=== PATIENT | male | born 1970 | race Caucasian/White ===

== ENCOUNTER 2016-11-26 19:22 | Emergency (ER) | payer MEDICARE, MEDICAID ==
[2016-11-26] MEDS ORDERED: Ketorolac 30 MG/ML SDV IVPUSH ONE (19:49)
[2016-11-26] MEDS ORDERED: Sodium Chloride 0.9% 1,000 ML IV ONE (19:49)
[2016-11-26] MEDS ORDERED: Ondansetron 4 MG/2 ML SDV IVPUSH ONE (19:49)
--- NOTE | 2016-11-26 19:50 | EDM.PDOC ---
ED HPI GENERAL MEDICAL PROBLEM - General Chief Complaint: Abdominal Pain Stated Complaint: PT HAS STOMACH PAINS Time Seen by Provider: 11/26/16 19:49 Source of Information: Reports: Patient - History of Present Illness INITIAL COMMENTS - FREE TEXT/NARRATIVE: HISTORY AND PHYSICAL: History of present illness: [Patient presents with diffuse abdominal pain right upper and lower quadrant both have a focus of pain he rates 5 out of 10 no fever nausea vomiting chills sweats no chest pain shortness breath headache dizziness palpitation no bowel or urine symptoms ] Review of systems: As per history of present illness and below otherwise all systems reviewed and negative. Past medical history: As per history of present illness and as reviewed below otherwise noncontributory. Surgical history: As per history of present illness and as reviewed below otherwise noncontributory. Social history: No reported history of drug or alcohol abuse. Family history: As per history of present illness and as reviewed below otherwise noncontributory. Physical exam: HEENT: Atraumatic, normocephalic, pupils reactive, negative for conjunctival pallor or scleral icterus, mucous membranes moist, throat clear, neck supple, nontender, trachea midline. Lungs: Clear to auscultation, breath sounds equal bilaterally, chest nontender. Heart: S1S2, regular, negative for clicks, rubs, or JVD. Abdomen: Soft, nondistended diffusely tender with focus in right upper quadrant and right lower quadrant with mild guarding no rebound. Negative for masses or hepatosplenomegaly. Negative for costovertebral tenderness. Pelvis: Stable nontender. Genitourinary: Deferred. Rectal: Deferred. Extremities: Atraumatic, negative for cords or calf pain. Neurovascular unremarkable. Neuro: Awake, alert, oriented. Cranial nerves II through XII unremarkable. Cerebellum unremarkable. Motor and sensory unremarkable throughout. Exam nonfocal. Diagnostics: [CBC CMP UA amylase lipase troponin CT abdomen pelvis with contrast ] Therapeutics: [1 L normal saline bolus Zofran 8 mg IV Toradol 30 mg IV ] Discussed with general surgery cotton picker operator Dr. 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 Abdominal Pain Score (Numeric/FACES): 8 - Related Data Allergies Allergy/AdvReac Type Severity Reaction Status Date / Time succinylcholine Allergy Anaphylactic Verified 11/26/16 19:43 Shock Home Meds: Home Meds busPIRone [Buspar] 15 tab PO BID 02/22/15 [History] Divalproex Sodium [Depakote] 1,000 mg PO DAILY 11/26/16 [History] Divalproex Sodium [Depakote] 500 mg PO DAILY 11/26/16 [History] Past Medical History Cardiovascular History: Reports: Hypertension Respiratory History: Reports: None Psychiatric History: Reports: Anxiety Hematologic History: Reports: None - Infectious Disease History Infectious Disease History: Reports: Chicken Pox - Past Surgical History HEENT Surgical History: Reports: Eye Surgery, Myringotomy w Tube(s), Tonsillectomy GI Surgical History: Reports: Hernia Repair/Other Social & Family History - Family History Family Medical History: Noncontributory - Tobacco Use Smoking Status *Q: Current Every Day Smoker Years of Tobacco use: 5 Packs/Tins Daily: 0.5 ED ROS GENERAL - Review of Systems Review Of Systems: ROS reveals no pertinent complaints other than HPI. ED EXAM, GENERAL - Physical Exam Exam: See Below Course - Vital Signs Last Recorded V/S: Last Vital Signs Temp 35.9 C 11/26/16 19:39 Pulse 122 H 11/26/16 19:39 Resp 19 11/26/16 19:39 BP 137/107 H 11/26/16 19:39 Pulse Ox 97 11/26/16 19:39 - Orders/Labs/Meds Orders: Active Orders 24 hr Category Date Time Status Abdomen Pelvis w Cont [CT] Stat Exams 11/26/16 20:03 Taken Labs: Laboratory Tests 11/26/16 11/26/16 11/26/16 Range/Units 20:06 20:06 20:20 WBC 17.23 H (4.0-11.0) K/uL RBC 4.86 (4.50-5.90) M/uL Hgb 14.8 (13.0-17.0) g/dL Hct 43.6 (38.0-50.0) % MCV 89.7 (80.0-98.0) fL MCH 30.5 (27.0-32.0) pg MCHC 33.9 (31.0-37.0) g/dL RDW Std Deviation 47.6 (28.0-62.0) fl RDW Coeff of Bernarda 15 (11.0-15.0) % Plt Count 418 H (150-400) K/uL MPV 9.90 (7.40-12.00) fL Add Manual Diff YES Neutrophils % (Manual) 78 (48.0-80.0) % Band Neutrophils % 3 % Lymphocytes % (Manual) 8 L (16.0-40.0) % Monocytes % (Manual) 9 (0.0-15.0) % Metamyelocytes % 2 % Nucleated RBC % 0.0 /100WBC Absolute Seg Neuts 13.4 H (1.4-5.7) Band Neutrophils # 0.5 Lymphocytes # (Manual) 1.4 (0.6-2.4) Monocytes # (Manual) 1.6 H (0.0-0.8) Absolute Metamyelocyte 0.3 Nucleated RBCs # 0 K/uL Sodium 130 L (136-146) mmol/L Potassium 4.3 (3.5-5.1) mmol/L Chloride 95 L (98-110) mmol/L Carbon Dioxide 21 (21-31) mmol/L BUN 20 (6.0-23.0) mg/dL Creatinine 1.0 (0.6-1.5) mg/dL Est Cr Clr Drug Dosing 69.01 mL/min Estimated GFR (MDRD) > 60.0 ml/min Glucose 110 (60-110) mg/dL Calcium 14.6 H (8.8-10.8) mg/dL Total Bilirubin 1.5 (0.1-1.5) mg/dL AST 71 H (5-40) IU/L ALT 71 H (8-54) IU/L Alkaline Phosphatase 697 H (40-150) Troponin I < 0.10 (0.0-0.29) NG/ML Total Protein 7.8 (6.0-8.0) g/dL Albumin 3.5 (3.5-5.0) g/dL Globulin 4.3 H (2.0-3.5) g/dL Albumin/Globulin Ratio 0.8 L (1.3-2.8) Amylase 15 (10-90) U/L Lipase 16 (7-80) U/L Urine Color YELLOW Urine Appearance CLEAR Urine pH 5.0 (5.0-8.0) Ur Specific [place] 1.020 (1.001-1.035) Urine Protein NEGATIVE (NEGATIVE) mg/dL Urine Glucose (UA) NEGATIVE (NEGATIVE) mg/dL Urine Ketones NEGATIVE (NEGATIVE) mg/dL Urine Occult Blood TRACE-INTACT (NEGATIVE) Urine Nitrite NEGATIVE (NEGATIVE) Urine Bilirubin NEGATIVE (NEGATIVE) Urine Urobilinogen 0.2 (<2.0) EU/dL Ur Leukocyte Esterase NEGATIVE (NEGATIVE) Urine RBC 0-1 (0-2/HPF) Urine WBC 0-1 (0-5/HPF) Ur Epithelial Cells RARE (NONE-FEW) Urine Bacteria FEW (NEGATIVE) Hyaline Casts 3-5 (0-2/LPF) Meds: Medications Discontinued Medications Generic Name Dose Route Start Last Admin Trade Name Freq PRN Reason Stop Dose Admin Sodium Chloride 1,000 mls @ 999 mls/hr 11/26/16 19:49 11/26/16 20:15 Normal Saline IV 11/26/16 20:49 999 mls/hr STAT ONE Administration Ketorolac Tromethamine 30 mg 11/26/16 19:49 11/26/16 20:15 Toradol IVPUSH 11/26/16 19:50 30 mg ONETIME ONE Administration Ondansetron HCl 8 mg 11/26/16 19:49 11/26/16 20:17 Zofran IVPUSH 11/26/16 19:50 8 mg ONETIME ONE Administration Departure - Departure Time of Disposition: 22:10 Disposition: Home, Self-Care 01 Condition: Poor Clinical Impression: Abdominal pain, Cecum mass - Discharge Information Referrals: PCP,None [Primary Care Provider] - Forms: ED Department Discharge Additional Instructions: Follow-up with general surgery, ER referral will be provided for Tuesday or Tuesday with Dr. hossein fabian Medication as prescribed Return if symptoms persist or worsen [facility] - General Surgery Professional [address], [address] [place] [address] The following information is given to patients seen in the emergency department who are being discharged to home. This information is to outline your options for follow-up care. We provide all patients seen in our emergency department with a follow-up referral. The need for follow-up, as well as the timing and circumstances, are variable depending upon the specifics of your emergency department visit. If you don't have a primary care physician on staff, we will provide you with a referral. We always advise you to contact your personal physician following an emergency department visit to inform them of the circumstance of the visit and for follow-up with them and/or the need for any referrals to a consulting specialist. The emergency department will also refer you to a specialist when appropriate. This referral assures that you have the opportunity for follow-up care with a specialist. All of these measure are taken in an effort to provide you with optimal care, which includes your follow-up. Under all circumstances we always encourage you to contact your private physician who remains a resource for coordinating your care. When calling for follow-up care, please make the office aware that this follow-up is from your recent emergency room visit. If for any reason you are refused follow-up, please contact the [facility] emergency department at and asked to speak to the emergency department charge nurse. - My Orders Last 24 Hours: My Active Orders 11/26/16 20:03 Abdomen Pelvis w Cont [CT] Stat - Assessment/Plan Last 24 Hours: My Active Orders 11/26/16 20:03 Abdomen Pelvis w Cont [CT] Stat
[2016-11-26 20:39] LABS: CHLORIDE,CL 95 mmol/L (98-110); SODIUM,NA 130 mmol/L (136-146)
[2016-11-26] MEDS ORDERED: Iopamidol 755 MG/ML 500 ML Multipack Bottle IVPUSH STA (22:41)
[2016-11-26 22:47] VITALS: BP 129/85
--- NOTE | 2016-11-28 18:36 | CT ---
EXAM DATE: 11/26/16 PATIENT'S AGE: 46 Patient: ROBINSON GARCIA Facility: [place], [place] Site . Site : 1970 Study: CT Abdomen/Pelvis [id number] 9:25:21 PM Ordering Physician: Michael Dangelo Final Report: INDICATION: Right-sided abdominal pain with nausea, vomiting, and diarrhea for 2 weeks. TECHNIQUE: CT abdomen and pelvis acquired with i.v. 100 mL Isovue 370. Coronal and sagittal reformats were obtained. COMPARISON: None FINDINGS: Student Services Director CT images: Nonobstructive bowel gas pattern. Lower chest: Imaged lung bases are clear. No free air. Imaged inferior heart normal in size. No pericardial or pleural effusion. Liver: Numerous hypodense liver lesions throughout the liver, compatible with metastatic disease. Spleen: Unremarkable. Pancreas: Unremarkable. Gallbladder and bile ducts: Incomplete distention of the gallbladder. No acute inflammatory changes in the gallbladder fossa. Bile ducts are normal in caliber. Kidneys: Unremarkable. No kidney or ureteral stones and no hydronephrosis seen. Tiny cortical cyst at superior margin of right kidney on series 301, image 87. Adrenal glands: Unremarkable. GI tract: Abnormal appearance to the cecum, suspicious for likely mass and etiology of numerous liver lesions, visualized on the coronal reformatted series 303, image 41. Exact dimensions likely cecal mass difficult to delineate. Scattered regional mesenteric lymph nodes medial to the cecum, largest measuring 1 centimeter on image 115. Vascular: Unremarkable. Lymph nodes: Multiple mildly enlarged mesenteric lymph nodes in the right lower abdominal quadrant, compatible with metastatic lymph nodes with likely underlying cecal mass. Miscellaneous: Unremarkable. No pneumoperitoneum is seen. No significant ascites is noted. Pelvic Organs: Unremarkable. Bones: Unremarkable for age. IMPRESSION: 1. Findings suspicious for cecal mass with metastatic right lower quadrant mesenteric lymph nodes and numerous hypodense liver lesions. Consider GI consultation for direct visualization and possible tissue sampling. Report called to Dr. Rodriguez on 11/26/2016 at 9:58pm DIRECTOR SUPPLY. Dictated by Juan Marie MD @ 11/26/2016 9:59:10 PM Dictated by: Juan Marie MD @ 11/26/2016 21:59:18 (Electronic Signature) Report Signed by Proxy. [facility]
== END 2016-11-26 22:25 | disposition home or self-care (01) ==
LOC: MW.ED 19:22
DX: K63.89 Other specified diseases of intestine (principal); C78.7 Secondary malignant neoplasm of liver and intrahepatic bile duct; I10 Essential (primary) hypertension; F17.210 Nicotine dependence, cigarettes, uncomplicated; Z79.899 Other long term (current) drug therapy; Z88.8 Allergy status to other drugs, medicaments and biological substances
CPT/HCPCS: 36415; 74177; 80053; 81001; 82150; 83690; 84484; 85025; 96361; 96374; 96375; 99284; J1885; J2405; J7040; Q9967; 99283

== ENCOUNTER 2017-03-05 10:48 | Inpatient (IN) | payer MEDICARE, MEDICAID ==
[2017-03-05] MEDS ORDERED: Sodium Chloride 0.9% 2.5 ML Syringe FLUSH PRN (10:54)
[2017-03-05] MEDS ORDERED: Sodium Chloride 0.9% 1,000 ML IV ONE (10:54)
[2017-03-05] MEDS ORDERED: Sodium Chloride 0.9% 10 ML Syringe FLUSH PRN (10:54)
--- NOTE | 2017-03-05 11:04 | EDM.PDOC ---
ED HPI GENERAL MEDICAL PROBLEM - General Chief Complaint: General Stated Complaint: AMB Time Seen by Provider: 03/05/17 10:52 - History of Present Illness INITIAL COMMENTS - FREE TEXT/NARRATIVE: HISTORY AND PHYSICAL: History of present illness: Patient 46-year-old male with history of advanced metastatic cancer of the colon with liver involvement who is currently undergoing chemotherapy who presents with concern of generalized weakness he's had poor oral intake and no reported fever vomiting or diarrhea Review of systems: As per history of present illness and below otherwise all systems reviewed and negative. Past medical history: As per history of present illness and as reviewed below otherwise noncontributory. Surgical history: As per history of present illness and as reviewed below otherwise noncontributory. Social history: No reported history of drug or alcohol abuse. Family history: As per history of present illness and as reviewed below otherwise noncontributory. Physical exam: HEENT: Atraumatic, normocephalic, pupils reactive, negative conjunctival pallor and scleral icterus noted, mucous membranes moist, throat clear, neck supple, nontender, trachea midline. Lungs: Clear to auscultation, breath sounds equal bilaterally, chest nontender. Heart: S1S2, regular, negative for clicks, rubs, or JVD. Abdomen: Soft, nondistended, nontender. Negative for masses or hepatosplenomegaly. Negative for costovertebral tenderness. Pelvis: Stable nontender. Genitourinary: Deferred. Rectal: Deferred. Extremities: Atraumatic, negative for cords or calf pain. Neurovascular unremarkable. Neuro: Awake, somnolent follows commands moves all extremities generally slow mentation Diagnostics: CBC CMP ABG PT/INR UA urine C&S blood culture 2 lactic acid ammonia EKG troponin chest x-ray Therapeutics: IV O2 monitor saline 1 L bolus Impression: #1 metastatic colon cancer with liver involvement #2 generalized weakness Definitive disposition and diagnosis as appropriate pending reevaluation and review of above. - Related Data Allergies Allergy/AdvReac Type Severity Reaction Status Date / Time succinylcholine Allergy Anaphylactic Verified 03/05/17 10:54 Shock Home Meds: Home Meds busPIRone [Buspar] 15 tab PO BID 02/22/15 [History] Divalproex Sodium [Depakote] 1,000 mg PO DAILY 11/26/16 [History] Divalproex Sodium [Depakote] 500 mg PO DAILY 11/26/16 [History] oxyCODONE 5 mg PO 03/05/17 [History] Past Medical History HEENT History: Reports: None Cardiovascular History: Reports: Hypertension Respiratory History: Reports: None Psychiatric History: Reports: Anxiety Hematologic History: Reports: None - Infectious Disease History Infectious Disease History: Reports: Chicken Pox - Past Surgical History HEENT Surgical History: Reports: Eye Surgery, Myringotomy w Tube(s), Tonsillectomy GI Surgical History: Reports: Hernia Repair/Other Social & Family History - Family History Family Medical History: Noncontributory - Tobacco Use Smoking Status *Q: Current Every Day Smoker Years of Tobacco use: 5 Packs/Tins Daily: 0.5 Second Hand Smoke Exposure: No - Caffeine Use Caffeine Use: Reports: None - Recreational Drug Use Recreational Drug Use: Yes Recreational Drug Type: Reports: Marijuana/Hashish Recreational Drug Last Use: "a month and a half ago" ED ROS GENERAL - Review of Systems Review Of Systems: ROS reveals no pertinent complaints other than HPI. ED EXAM, GENERAL - Physical Exam Exam: See Below (Dictation) Course - Vital Signs Last Recorded V/S: Last Vital Signs Temp 36.4 C 03/05/17 10:55 Pulse 93 03/05/17 11:43 Resp 20 03/05/17 11:43 BP 138/100 H 03/05/17 11:43 Pulse Ox 97 03/05/17 11:43 - Orders/Labs/Meds Orders: Active Orders 24 hr Category Date Time Status Cardiac Monitoring [RC] . DIRECTED Care 03/05/17 10:53 Active EKG Documentation Completion [RC] STAT Care 03/05/17 10:53 Active Oxygen Therapy, ED [RC] ASDIRECTED Care 03/05/17 10:53 Active Pulse Oximetry [RC] ASDIRECTED Care 03/05/17 10:53 Active Chest 1V Frontal [CR] Stat Exams 03/05/17 10:54 Taken CULTURE BLOOD [BC] Stat Lab 03/05/17 11:13 Received CULTURE BLOOD [BC] Stat Lab 03/05/17 11:26 Received CULTURE URINE [RM] Stat Lab 03/05/17 10:54 Uncollected INR,PT,PROTHROMBIN TIME [COAG] Stat Lab 03/05/17 11:13 Received UA W/MICROSCOPIC [URIN] Stat Lab 03/05/17 10:54 Uncollected Sodium Chloride 0.9% [Saline Flush] Med 03/05/17 10:54 Active 10 ml FLUSH ASDIRECTED PRN Sodium Chloride 0.9% [Saline Flush] Med 03/05/17 10:54 Active 2.5 ml FLUSH ASDIRECTED PRN Blood Culture x2 Reflex Set [OM.PC] Stat Ot 03/05/17 10:54 Ordered Saline Lock Insert [OM.PC] Stat Ot 03/05/17 10:53 Ordered Medication Orders Sodium Chloride (Saline Flush) 10 ml FLUSH ASDIRECTED PRN PRN Reason: Keep Vein Open Sodium Chloride (Saline Flush) 2.5 ml FLUSH ASDIRECTED PRN PRN Reason: Keep Vein Open Labs: Laboratory Tests 03/05/17 03/05/17 03/05/17 Range/Units 11:13 11:13 11:13 WBC 9.66 (4.0-11.0) K/uL RBC 4.70 (4.50-5.90) M/uL Hgb 14.5 (13.0-17.0) g/dL Hct 42.2 (38.0-50.0) % MCV 89.8 (80.0-98.0) fL MCH 30.9 (27.0-32.0) pg MCHC 34.4 (31.0-37.0) g/dL RDW Std Deviation 64.4 H (28.0-62.0) fl RDW Coeff of Bernarda 20 H (11.0-15.0) % Plt Count 144 L (150-400) K/uL MPV 9.40 (7.40-12.00) fL Neut % (Auto) 91.2 H (48.0-80.0) % Lymph % (Auto) 7.2 L (16.0-40.0) % [place] % (Auto) 1.4 (0.0-15.0) % Eos % (Auto) 0.0 (0.0-7.0) % Baso % (Auto) 0.2 (0.0-1.5) % Neut # (Auto) 8.8 H (1.4-5.7) K/uL Lymph # (Auto) 0.7 (0.6-2.4) K/uL [place] # (Auto) 0.1 (0.0-0.8) K/uL Eos # (Auto) 0.0 (0.0-0.7) K/uL Baso # (Auto) 0.0 (0.0-0.1) K/uL Nucleated RBC % 0.4 /100WBC Nucleated RBCs # 0 K/uL ABG pH (7.35-7.45) ABG pCO2 (35-45) mmHG ABG pO2 (75-100) mmHG ABG HCO3 (22-26) mEq/L ABG Total CO2 ABG Base Excess (-2.0-2.0) Sodium 131 L (136-146) mmol/L Potassium 3.9 (3.5-5.1) mmol/L Chloride 91 L (98-110) mmol/L Carbon Dioxide 18 L (21-31) mmol/L BUN 8 (6.0-23.0) mg/dL Creatinine 0.5 L (0.6-1.5) mg/dL Est Cr Clr Drug Dosing 143.64 mL/min Estimated GFR (MDRD) > 60.0 ml/min Glucose 70 (60-110) mg/dL Calcium 8.8 (8.8-10.8) mg/dL Total Bilirubin 9.5 H (0.1-1.5) mg/dL AST 534 H (5-40) IU/L ALT 98 H (8-54) IU/L Alkaline Phosphatase 647 H (40-150) Ammonia 151 H (14-68) UG/DL Troponin I < 0.10 (0.0-0.29) NG/ML Total Protein 6.1 (6.0-8.0) g/dL Albumin 2.6 L (3.5-5.0) g/dL Globulin 3.5 (2.0-3.5) g/dL Albumin/Globulin Ratio 0.7 L (1.3-2.8) Amylase 23 (10-90) U/L 03/05/17 Range/Units 11:15 WBC (4.0-11.0) K/uL RBC (4.50-5.90) M/uL Hgb (13.0-17.0) g/dL Hct (38.0-50.0) % MCV (80.0-98.0) fL MCH (27.0-32.0) pg MCHC (31.0-37.0) g/dL RDW Std Deviation (28.0-62.0) fl RDW Coeff of Bernarda (11.0-15.0) % Plt Count (150-400) K/uL MPV (7.40-12.00) fL Neut % (Auto) (48.0-80.0) % Lymph % (Auto) (16.0-40.0) % [place] % (Auto) (0.0-15.0) % Eos % (Auto) (0.0-7.0) % Baso % (Auto) (0.0-1.5) % Neut # (Auto) (1.4-5.7) K/uL Lymph # (Auto) (0.6-2.4) K/uL [place] # (Auto) (0.0-0.8) K/uL Eos # (Auto) (0.0-0.7) K/uL Baso # (Auto) (0.0-0.1) K/uL Nucleated RBC % /100WBC Nucleated RBCs # K/uL ABG pH 7.510 H (7.35-7.45) ABG pCO2 26 L (35-45) mmHG ABG pO2 88 (75-100) mmHG ABG HCO3 21 L (22-26) mEq/L ABG Total CO2 18.3 ABG Base Excess -0.6 (-2.0-2.0) Sodium (136-146) mmol/L Potassium (3.5-5.1) mmol/L Chloride (98-110) mmol/L Carbon Dioxide (21-31) mmol/L BUN (6.0-23.0) mg/dL Creatinine (0.6-1.5) mg/dL Est Cr Clr Drug Dosing mL/min Estimated GFR (MDRD) ml/min Glucose (60-110) mg/dL Calcium (8.8-10.8) mg/dL Total Bilirubin (0.1-1.5) mg/dL AST (5-40) IU/L ALT (8-54) IU/L Alkaline Phosphatase (40-150) Ammonia (14-68) UG/DL Troponin I (0.0-0.29) NG/ML Total Protein (6.0-8.0) g/dL Albumin (3.5-5.0) g/dL Globulin (2.0-3.5) g/dL Albumin/Globulin Ratio (1.3-2.8) Amylase (10-90) U/L Meds: Medications Generic Name Dose Route Start Last Admin Trade Name Freq PRN Reason Stop Dose Admin Sodium Chloride 10 ml 03/05/17 10:54 Saline Flush FLUSH ASDIRECTED PRN Keep Vein Open Sodium Chloride 2.5 ml 03/05/17 10:54 Saline Flush FLUSH ASDIRECTED PRN Keep Vein Open Discontinued Medications Generic Name Dose Route Start Last Admin Trade Name Freq PRN Reason Stop Dose Admin Sodium Chloride 1,000 mls @ 999 mls/hr 03/05/17 10:54 03/05/17 11:27 Normal Saline IV 03/05/17 11:54 999 mls/hr STAT ONE Administration Departure - Departure Time of Disposition: 11:04 Disposition: Admitted As Inpatient 67 Condition: Fair Clinical Impression: Generalized weakness, Metastatic cancer - Discharge Information Forms: ED Department Discharge - My Orders Last 24 Hours: My Active Orders 03/05/17 10:53 Cardiac Monitoring [RC] . DIRECTED EKG Documentation Completion [RC] STAT Oxygen Therapy, ED [RC] ASDIRECTED Pulse Oximetry [RC] ASDIRECTED Saline Lock Insert [OM.PC] Stat 03/05/17 10:54 Chest 1V Frontal [CR] Stat CULTURE URINE [RM] Stat UA W/MICROSCOPIC [URIN] Stat Sodium Chloride 0.9% [Saline Flush] 10 ml FLUSH ASDIRECTED PRN Sodium Chloride 0.9% [Saline Flush] 2.5 ml FLUSH ASDIRECTED PRN Blood Culture x2 Reflex Set [OM.PC] Stat 03/05/17 11:13 CULTURE BLOOD [BC] Stat INR,PT,PROTHROMBIN TIME [COAG] Stat 03/05/17 11:26 CULTURE BLOOD [BC] Stat - Assessment/Plan Last 24 Hours: My Active Orders 03/05/17 10:53 Cardiac Monitoring [RC] . DIRECTED EKG Documentation Completion [RC] STAT Oxygen Therapy, ED [RC] ASDIRECTED Pulse Oximetry [RC] ASDIRECTED Saline Lock Insert [OM.PC] Stat 03/05/17 10:54 Chest 1V Frontal [CR] Stat CULTURE URINE [RM] Stat UA W/MICROSCOPIC [URIN] Stat Sodium Chloride 0.9% [Saline Flush] 10 ml FLUSH ASDIRECTED PRN Sodium Chloride 0.9% [Saline Flush] 2.5 ml FLUSH ASDIRECTED PRN Blood Culture x2 Reflex Set [OM.PC] Stat 03/05/17 11:13 CULTURE BLOOD [BC] Stat INR,PT,PROTHROMBIN TIME [COAG] Stat 03/05/17 11:26 CULTURE BLOOD [BC] Stat
[2017-03-05 12:00] LABS: CHLORIDE,CL 91 mmol/L (98-110); SODIUM,NA 131 mmol/L (136-146)
[2017-03-05] MEDS ORDERED: Morphine 2 MG/ML Syringe IV PRN (14:15)
--- NOTE | 2017-03-05 14:19 | PCM.HP ---
H&P History of Present Illness - General Date of Service: 03/05/17 Admit Problem/Dx: Admission Diagnosis/Problem Admission Diagnosis/Problem Weakness Source of Information: Patient, Family History Limitations: Reports: No Limitations, Altered Mental Status - History of Present Illness Initial Comments - Free Text/Narative: 46-year-old male presenting to emergency department with chief complaint of generalized weakness and poor oral intake 1-2 weeks with past medical history of advanced metastatic cancer of the colon with liver and lung involvement currently undergoing chemotherapy. As per ex- and son primary reason for coming to emergency department was his progressive generalized weakness. Son states that this morning he was unable to get up and out of bed. He also has had decreased appetite and has not eaten much in the past few days. When he does eat he has difficulty holding it down. As above patient does have advanced metastatic cancer of the colon with involvement of the liver and lung. He is currently receiving chemotherapy. He is currently full code and would like everything done possible. Patient denied any fever, chills, vomiting, diarrhea, cough, sore throat, or other signs of systemic infection. Emergency department CBC was unremarkable. ABG showed a pH of 7.51, PCO2 26, PO2 88, HCO3 21. Sodium was low at 131 as well as bicarbonate low at 18. Liver function test were elevated with total bilirubin 9.5, AST 53 4, ALT 98, alkaline phosphatase 647. Ammonia was elevated at 151 and patient as well as family reported mild confusion. Influenza was negative, chest x-ray was unremarkable. He was given 1 L of normal saline in the emergency department. Patient was admitted for generalized weakness and failure to thrive. Abdomen Pain Score (Numeric/FACES): 6 - Related Data Allergies/Adverse Reactions: Allergies Allergy/AdvReac Type Severity Reaction Status Date / Time succinylcholine Allergy Anaphylactic Verified 03/05/17 10:54 Shock Home Medications: Home Meds busPIRone [Buspar] 15 tab PO BID 02/22/15 [History] Divalproex Sodium [Depakote] 1,000 mg PO DAILY 11/26/16 [History] Divalproex Sodium [Depakote] 500 mg PO DAILY 11/26/16 [History] oxyCODONE 5 mg PO 03/05/17 [History] Past Medical History HEENT History: Reports: None Cardiovascular History: Reports: Hypertension Respiratory History: Reports: None Psychiatric History: Reports: Anxiety Hematologic History: Reports: None Oncologic (Cancer) History: Reports: Colon, Liver - Infectious Disease History Infectious Disease History: Reports: Chicken Pox - Past Surgical History HEENT Surgical History: Reports: Eye Surgery, Myringotomy w Tube(s), Tonsillectomy GI Surgical History: Reports: Hernia Repair/Other Social & Family History - Family History Family Medical History: Noncontributory - Tobacco Use Smoking Status *Q: Never Smoker Years of Tobacco use: 5 Packs/Tins Daily: 0.5 Second Hand Smoke Exposure: No - Caffeine Use Caffeine Use: Reports: Coffee - Recreational Drug Use Recreational Drug Use: No Recreational Drug Type: Reports: Marijuana/Hashish Recreational Drug Last Use: "a month and a half ago" H&P Review of Systems - Review of Systems: Review Of Systems: See Below General: Reports: Malaise, Weakness, Fatigue. Denies: Fever, Chills, Diaphoresis HEENT: Denies: Headaches, Sore Throat Pulmonary: Denies: Shortness of Breath, Wheezing, Pleuritic Chest Pain, Cough Cardiovascular: Denies: Chest Pain, Palpitations Gastrointestinal: Reports: Abdominal Pain, Distension. Denies: Black Stool, Bloody Stool, Nausea, Vomiting Genitourinary: Denies: Dysuria, Hematuria Musculoskeletal: Denies: Neck Pain, Leg Pain Skin: Denies: Cyanosis Psychiatric: Reports: Confusion Neurological: Reports: Confusion. Denies: Dizziness, Headache Hematologic/Lymphatic: Denies: Anemia Exam - Exam Exam: See Below - Vital Signs Vital Signs: Last Vital Signs Temp 98.4 F 03/05/17 13:33 Pulse 90 03/05/17 13:33 Resp 18 03/05/17 13:33 BP 149/105 H 03/05/17 13:33 Pulse Ox 98 03/05/17 13:33 Weight: 64.6 kg - Exam Quality Assessment: DVT Prophylaxis General: Alert HEENT: PERRLA, Hearing Intact, Mucosa Moist & [place], Nares Patent, Normal Nasal Septum, Posterior Pharynx Clear, Conjunctiva Clear, EOMI, EACs Clear, TMs Clear Neck: Supple, Trachea Midline, 2 Lungs: Clear to Auscultation, Normal Respiratory Effort Cardiovascular: Regular Rate, Regular Rhythm GI/Abdominal Exam: Normal Bowel Sounds, Non-Tender, No Distention, Guarding, Tender, Mass, Hepatomegaly (Male) Exam: Deferred Extremities: Normal Inspection, Non-Tender, No Pedal Edema, Normal Capillary Refill Peripheral Pulses: 2+: Radial (L), Radial (R), Posterior Tibial (L), Posterior Tibial (R), Dorsalis Pedis (L), Dorsalis Pedis (R) Skin: Warm, Dry, Intact Neurological: Cranial Nerves Intact, Reflexes Equal Bilateral Neuro Extensive - Mental Status: Alert Neuro Extensive - Motor, Sensory, Reflexes: CN II-XII Intact Psychiatric: Alert, Labile Mood Physical Exam Comments:: Patient appears to be cachectic and visual examination. - Patient Data Lab Results Last 24 hrs: Laboratory Results - last 24 hr 03/05/17 Range/Units 12:47 Sodium 131 L (136-146) mmol/L Potassium 3.9 (3.5-5.1) mmol/L Chloride 91 L (98-110) mmol/L Carbon Dioxide 18 L (21-31) mmol/L BUN 8 (6.0-23.0) mg/dL Creatinine 0.5 L (0.6-1.5) mg/dL Est Cr Clr Drug Dosing 143.64 mL/min Estimated GFR (MDRD) > 60.0 ml/min Glucose 70 (60-110) mg/dL Calcium 8.8 (8.8-10.8) mg/dL Total Bilirubin 9.5 H (0.1-1.5) mg/dL AST 534 H (5-40) IU/L ALT 98 H (8-54) IU/L Alkaline Phosphatase 647 H (40-150) Troponin I < 0.10 (0.0-0.29) NG/ML Total Protein 6.1 (6.0-8.0) g/dL Albumin 2.6 L (3.5-5.0) g/dL Globulin 3.5 (2.0-3.5) g/dL Albumin/Globulin Ratio 0.7 L (1.3-2.8) Amylase 23 (10-90) U/L Result Diagrams: 03/05/17 11:13 03/05/17 12:47 *Q Meaningful Use (ADM) - VTE *Q VTE Criteria *Q: - Stroke *Q Stroke Criteria *Q: - AMI *Q AMI Criteria *Q: - Problem List (1) Colon cancer metastasized to multiple sites SNOMED Code(s): 40817928 ICD Code: C18.9 - MALIGNANT NEOPLASM OF COLON, UNSPECIFIED Status: Chronic Priority: High Current Visit: Yes (2) Generalized weakness SNOMED Code(s): 27239271 ICD Code: R53.1 - WEAKNESS Status: Acute Priority: High Current Visit: Yes (3) Abdominal pain SNOMED Code(s): 49537340 ICD Code: R10.9 - UNSPECIFIED ABDOMINAL PAIN Status: Chronic Current Visit: Yes Qualifiers: Abdominal location: generalized Qualified Code(s): R10.84 - Generalized abdominal pain Problem List Initiated/Reviewed/Updated: Yes Orders Last 24hrs: Active Orders 24 hr Category Date Time Status Regular Diet [DIET] Diet 03/05/17 Dinner Active Morphine Med 03/05/17 14:15 Ordered 2 mg IV Q2H PRN oxyCODONE Med 03/05/17 14:14 Ordered 5 mg PO Q4H PRN Medication Orders Morphine Sulfate (Morphine) 2 mg IV Q2H PRN PRN Reason: Pain Oxycodone HCl (Oxycodone) 5 mg PO Q4H PRN PRN Reason: Pain Sodium Chloride (Saline Flush) 10 ml FLUSH ASDIRECTED PRN PRN Reason: Keep Vein Open Sodium Chloride (Saline Flush) 2.5 ml FLUSH ASDIRECTED PRN PRN Reason: Keep Vein Open Assessment/Plan Comment:: 46-year-old male admitted generalized weakness and failure to thrive with past medical history of metastatic cancer of the colon involving lung and liver. Generalized weakness/altered mental status: Patient's ammonia level was elevated at 151. We will give lactulose 20 mg by mouth twice a day and monitor ammonia levels. IV fluid resuscitation secondary to dehydration. Looking at previous labs he did have a urinalysis obtained on 03/03/17 that does look significant for UTI. Will place patient on ciprofloxacin at this time. UA and Urine culture from this visit have not been obtained as patient has not been able to void. Metastatic cancer: Patient currently still full code and wishes to have everything done however appears to be very cachectic and in later stages of disease process. Did talk to his sister on the phone and she is aware of his late stage cancer but wants to be supportive of him his continued fight. Explained to her that we will try to replace abnormal electrolytes as well as supplement his diet with ensure to try to boost his overall energy and nutritional status. I did put in a dietary consult as well. Morphine and oxycodone for pain. VTE proph: Heparin, SCD Dispo: 3-4 days.
[2017-03-05] MEDS ORDERED: Bisacodyl 5 MG Tab PO PRN (14:37)
[2017-03-05] MEDS ORDERED: Temazepam 15 MG Cap PO PRN (14:37)
[2017-03-05] MEDS ORDERED: Morphine 2 MG/ML Syringe IVPUSH PRN (14:37)
[2017-03-05] MEDS ORDERED: Polyethylene Glycol 3350 Powder 17 GM Packet PO PRN (14:37)
[2017-03-05] MEDS: Ondansetron 4 MG/2 ML SDV IVPUSH PRN (14:54)
[2017-03-05] MEDS: oxyCODONE 5 MG Tab PO PRN ×4 (14:54→23:56)
[2017-03-05] MEDS: Heparin Sodium 5,000 Units/ML Vial SUBCUT SCH (15:06)
[2017-03-05] MEDS: Lactulose Soln 10 GM/15 ML 15 ML UD Cup PO SCH ×2 (15:07→20:22)
[2017-03-05] MEDS: Ciprofloxacin in D5W 400 MG in Premix Bag 1 BAG IV SCH ×2 (15:12)
[2017-03-05] MEDS: Sodium Chloride 0.9% 1,000 ML IV SCH (19:00)
[2017-03-06] MEDS: Sodium Chloride 0.9% 1,000 ML IV SCH ×2 (01:16→11:59)
[2017-03-06] MEDS: Ondansetron 4 MG/2 ML SDV IVPUSH PRN ×2 (03:22→09:45)
[2017-03-06] MEDS: Heparin Sodium 5,000 Units/ML Vial SUBCUT SCH ×2 (03:25→14:17)
[2017-03-06] MEDS: Ciprofloxacin in D5W 400 MG in Premix Bag 1 BAG IV SCH ×4 (03:25→16:40)
[2017-03-06] MEDS: oxyCODONE 5 MG Tab PO PRN ×4 (04:02→20:08)
[2017-03-06 06:37] LABS: CHLORIDE,CL 96 mmol/L (98-110); SODIUM,NA 132 mmol/L (136-146)
[2017-03-06] MEDS: Lactulose Soln 10 GM/15 ML 15 ML UD Cup PO SCH ×2 (09:35→20:08)
[2017-03-06] MEDS: Ondansetron 4 MG Tab.DIS PO PRN ×2 (12:11→20:08)
[2017-03-06] MEDS ORDERED: Potassium Chloride 20 MEQ Tab.ER PO ONE (13:42)
[2017-03-06] MEDS ORDERED: Magnesium Sulfate/Water 4 GM in Premix Bag 1 BAG IV ONE (13:42)
[2017-03-06] MEDS ORDERED: Sodium Chloride 0.9% with KCl 1,000 ML IV SCH (13:45)
[2017-03-06] MEDS ORDERED: SODIUM CHLORIDE IV ONE (14:00)
[2017-03-06] MEDS ORDERED: SODIUM PHOSPHATE IV ONE (14:00)
--- NOTE | 2017-03-06 14:36 | PCM.PN ---
- Review of Systems Systems Review Comment:: reports generalized weakness, some abdominal pain and nausea - Patient Data Vitals - Most Recent: Last Vital Signs Temp 36.6 C 03/06/17 12:00 Pulse 88 03/06/17 12:00 Resp 18 03/06/17 12:00 BP 129/88 03/06/17 12:00 Pulse Ox 98 03/06/17 12:00 Weight - Most Recent: 64.6 kg I&O - Last 24 Hours: Intake & Output 03/05/17 03/06/17 03/06/17 22:59 06:59 14:59 Intake Total 100 2141 Output Total 200 200 Balance -100 1941 Lab Results Last 24 Hours: Laboratory Results - last 24 hr 03/05/17 03/05/17 03/06/17 Range/Units 14:45 21:44 05:49 WBC 6.78 (4.0-11.0) K/uL RBC 3.69 L (4.50-5.90) M/uL Hgb 11.3 L (13.0-17.0) g/dL Hct 33.5 L (38.0-50.0) % MCV 90.8 (80.0-98.0) fL MCH 30.6 (27.0-32.0) pg MCHC 33.7 (31.0-37.0) g/dL RDW Std Deviation 65.3 H (28.0-62.0) fl RDW Coeff of Bernarda 20 H (11.0-15.0) % Plt Count 113 L (150-400) K/uL MPV 9.20 (7.40-12.00) fL Nucleated RBC % 0.0 /100WBC Nucleated RBCs # 0 K/uL Sodium (136-146) mmol/L Potassium (3.5-5.1) mmol/L Chloride (98-110) mmol/L Carbon Dioxide (21-31) mmol/L BUN (6.0-23.0) mg/dL Creatinine (0.6-1.5) mg/dL Est Cr Clr Drug Dosing mL/min Estimated GFR (MDRD) ml/min Glucose (60-110) mg/dL POC Glucose 65 (60-110) mg/dL Calcium (8.8-10.8) mg/dL Phosphorus (2.4-4.7) mg/dL Magnesium (1.5-2.3) mEq/L Total Bilirubin (0.1-1.5) mg/dL AST (5-40) IU/L ALT (8-54) IU/L Alkaline Phosphatase (40-150) Total Protein (6.0-8.0) g/dL Albumin (3.5-5.0) g/dL Globulin (2.0-3.5) g/dL Albumin/Globulin Ratio (1.3-2.8) Urine Color BROWN Urine Appearance CLEAR Urine pH 6.0 (5.0-8.0) Ur Specific [place] 1.025 (1.001-1.035) Urine Protein NEGATIVE (NEGATIVE) mg/dL Urine Glucose (UA) NEGATIVE (NEGATIVE) mg/dL Urine Ketones 40 H (NEGATIVE) mg/dL Urine Occult Blood NEGATIVE (NEGATIVE) Urine Nitrite NEGATIVE (NEGATIVE) Urine Bilirubin LARGE H (NEGATIVE) Urine Ictotest POSITIVE Urine Urobilinogen 4.0 H (<2.0) EU/dL Ur Leukocyte Esterase NEGATIVE (NEGATIVE) Urine RBC 0-1 (0-2/HPF) Urine WBC 2-5 (0-5/HPF) Ur Epithelial Cells FEW (NONE-FEW) Urine Bacteria FEW (NEGATIVE) Urine Mucus LIGHT (NONE-MOD) 03/06/17 Range/Units 05:49 WBC (4.0-11.0) K/uL RBC (4.50-5.90) M/uL Hgb (13.0-17.0) g/dL Hct (38.0-50.0) % MCV (80.0-98.0) fL MCH (27.0-32.0) pg MCHC (31.0-37.0) g/dL RDW Std Deviation (28.0-62.0) fl RDW Coeff of Bernarda (11.0-15.0) % Plt Count (150-400) K/uL MPV (7.40-12.00) fL Nucleated RBC % /100WBC Nucleated RBCs # K/uL Sodium 132 L (136-146) mmol/L Potassium 3.0 L (3.5-5.1) mmol/L Chloride 96 L (98-110) mmol/L Carbon Dioxide 21 (21-31) mmol/L BUN 6 (6.0-23.0) mg/dL Creatinine 0.5 L (0.6-1.5) mg/dL Est Cr Clr Drug Dosing 170.47 mL/min Estimated GFR (MDRD) > 60.0 ml/min Glucose 68 (60-110) mg/dL POC Glucose (60-110) mg/dL Calcium 8.2 L (8.8-10.8) mg/dL Phosphorus < 1.0 L (2.4-4.7) mg/dL Magnesium 1.2 L (1.5-2.3) mEq/L Total Bilirubin 8.5 H (0.1-1.5) mg/dL AST 657 H (5-40) IU/L ALT 128 H (8-54) IU/L Alkaline Phosphatase 464 H (40-150) Total Protein 5.3 L (6.0-8.0) g/dL Albumin 2.2 L (3.5-5.0) g/dL Globulin 3.1 (2.0-3.5) g/dL Albumin/Globulin Ratio 0.7 L (1.3-2.8) Urine Color Urine Appearance Urine pH (5.0-8.0) Ur Specific [place] (1.001-1.035) Urine Protein (NEGATIVE) mg/dL Urine Glucose (UA) (NEGATIVE) mg/dL Urine Ketones (NEGATIVE) mg/dL Urine Occult Blood (NEGATIVE) Urine Nitrite (NEGATIVE) Urine Bilirubin (NEGATIVE) Urine Ictotest Urine Urobilinogen (<2.0) EU/dL Ur Leukocyte Esterase (NEGATIVE) Urine RBC (0-2/HPF) Urine WBC (0-5/HPF) Ur Epithelial Cells (NONE-FEW) Urine Bacteria (NEGATIVE) Urine Mucus (NONE-MOD) Med Orders - Current: Current Medications Bisacodyl (Dulcolax) 5 mg PO DAILY PRN PRN Reason: Constipation Heparin Sodium (Porcine) (Heparin Sodium) 5,000 units SUBCUT Q12H [facility] Last Admin: 03/06/17 14:17 Dose: 5,000 units Ciprofloxacin/Dextrose 400 mg/ (Premix) 200 mls @ 200 mls/hr IV Q12H [facility] Last Admin: 03/06/17 03:25 Dose: 200 mls/hr Sodium Phosphate 32 mmole/ (Sodium Chloride) 260.6667 mls @ 65.167 mls/hr IV ONETIME ONE Stop: 03/06/17 17:59 Potassium Chloride/Sodium Chloride (Normal Saline With 40 Meq Kcl) 1,000 mls @ 150 mls/hr IV ASDIRECTED [facility] Stop: 03/06/17 20:24 Magnesium Sulfate 4 gm/ Premix 100 mls @ 50 mls/hr IV ONETIME ONE Stop: 03/06/17 15:41 Last Admin: 03/06/17 14:18 Dose: 50 mls/hr Lactulose (Chronulac) 20 gm PO BID [facility] Last Admin: 03/06/17 09:35 Dose: 20 gm Morphine Sulfate (Morphine) 2 mg IV Q2H PRN PRN Reason: Pain Morphine Sulfate (Morphine) 2 mg IVPUSH Q2H PRN PRN Reason: Pain (severe 7-10) Stop: 03/06/17 14:39 Ondansetron HCl (Zofran Odt) 4 mg PO Q4H PRN PRN Reason: nausea, able to take PO Last Admin: 03/06/17 12:11 Dose: 4 mg Ondansetron HCl (Zofran) 4 mg IVPUSH Q4H PRN PRN Reason: Nausea Last Admin: 03/06/17 09:45 Dose: 4 mg Oxycodone HCl (Oxycodone) 10 mg PO Q4H PRN PRN Reason: Pain Last Admin: 03/06/17 09:46 Dose: 10 mg Polyethylene Glycol (Miralax) 17 gm PO DAILY PRN PRN Reason: Constipation Sodium Chloride (Saline Flush) 10 ml FLUSH ASDIRECTED PRN PRN Reason: Keep Vein Open Sodium Chloride (Saline Flush) 2.5 ml FLUSH ASDIRECTED PRN PRN Reason: Keep Vein Open Sodium Phosphate (Neutra-Phos) 250 mg PO QID [facility] Temazepam (Restoril) 15 mg PO BEDTIME PRN PRN Reason: Sleep Discontinued Medications Sodium Chloride (Normal Saline) 1,000 mls @ 999 mls/hr IV STAT ONE Stop: 03/05/17 11:54 Last Admin: 03/05/17 11:27 Dose: 999 mls/hr Sodium Chloride (Normal Saline) 1,000 mls @ 125 mls/hr IV ASDIRECTED [facility] Last Admin: 03/06/17 11:59 Dose: 125 mls/hr Oxycodone HCl (Oxycodone) 5 mg PO Q4H PRN PRN Reason: Pain Last Admin: 03/05/17 18:36 Dose: 5 mg Potassium Chloride (Klor-Con M20) 40 meq PO ONETIME ONE Stop: 03/06/17 13:43 Last Admin: 03/06/17 14:18 Dose: 40 meq - Exam General: Alert, Cooperative, Other (cachectic) Lungs: Clear to Auscultation, Normal Respiratory Effort Cardiovascular: Regular Rate, Regular Rhythm GI/Abdominal Exam: Soft, Non-Tender, No Distention Extremities: No Pedal Edema Skin: Warm, Dry, Intact Neurological: No New Focal Deficit - Problem List Review Problem List Initiated/Reviewed/Updated: Yes - My Orders Last 24 Hours: My Active Orders 03/06/17 13:42 Magnesium Sulfate/Water [Magnesium Sulfate 4 GM in Water 100 ML] 4 gm Premix Bag 1 bag IV ONETIME 03/06/17 13:45 Sodium Chloride 0.9% with KCl [Normal Saline with 40 mEq KCl] 1,000 ml IV ASDIRECTED 03/06/17 14:00 Sodium Phosphate 32 mmole Sodium Chloride 0.9% [Normal Saline] 250 ml IV ONETIME 03/06/17 18:00 Phosphorus #1 [Neutra-Phos] 250 mg PO QID 03/06/17 19:00 BASIC METABOLIC PANEL,BMP [CHEM] Routine MAGNESIUM [CHEM] Routine PHOSPHORUS [CHEM] Routine - Plan Plan:: 46-year-old male admitted generalized weakness and failure to thrive with past medical history of metastatic cancer of the colon involving lung and liver. UTI: on ciprofloxacin Hypokalemia/hypomagnesia/hypophosphatemia: replacing IV and PO, will repeat labs this evening. VTE proph: Heparin, SCD Dispo: 3-4 days.
[2017-03-06] MEDS: Phosphorus #1 250 MG Tab PO SCH (17:29)
[2017-03-06 19:46] LABS: CHLORIDE,CL 96 mmol/L (98-110); SODIUM,NA 132 mmol/L (136-146)
[2017-03-07] MEDS: oxyCODONE 5 MG Tab PO PRN ×6 (00:39→23:09)
[2017-03-07] MEDS: Phosphorus #1 250 MG Tab PO SCH ×6 (00:39→23:10)
[2017-03-07] MEDS: Ondansetron 4 MG Tab.DIS PO PRN ×5 (00:40→18:21)
[2017-03-07] MEDS: Heparin Sodium 5,000 Units/ML Vial SUBCUT SCH ×2 (03:07→16:39)
[2017-03-07] MEDS: Ciprofloxacin in D5W 400 MG in Premix Bag 1 BAG IV SCH ×4 (03:08→15:07)
[2017-03-07 06:42] LABS: CHLORIDE,CL 98 mmol/L (98-110); SODIUM,NA 133 mmol/L (136-146)
[2017-03-07] MEDS ORDERED: Sodium Phosphate 15 mMole/5 ML SDV IV ONE (08:45)
[2017-03-07] MEDS ORDERED: Potassium Chloride 20 MEQ Tab.ER PO ONE (08:45)
[2017-03-07] MEDS ORDERED: Magnesium Sulfate/Water 2 GM in Premix Bag 1 BAG IV ONE (08:45)
[2017-03-07] MEDS: Lactulose Soln 10 GM/15 ML 15 ML UD Cup PO SCH (09:08)
[2017-03-07] MEDS ORDERED: Sodium Phosphate 40 MMOLE in Sodium Chloride 0.9% 250 ML IV ONE (09:15)
[2017-03-07] MEDS ORDERED: Calcium Carbonate 500 MG Tab.Chew PO ONE (13:25)
--- NOTE | 2017-03-07 13:25 | PCM.PN ---
- General Info Date of Service: 03/07/17 Admission Dx/Problem (Free Text): Admission Diagnosis/Problem Admission Diagnosis/Problem Weakness Subjective Update: Feeling stronger today than on admission but not quite ready to be discharged home. No chest pain or SOB. Midline abdominal pain, which is chronic, Oxycodone helps with pain. Appetite still poor. Trying to eat more, appetite improves in evening, no appetite in the am. Functional Status: Reports: Pain Controlled, Tolerating Diet, Ambulating, Urinating - Review of Systems General: Reports: Weakness, Fatigue Pulmonary: Reports: No Symptoms. Denies: Shortness of Breath Cardiovascular: Reports: No Symptoms. Denies: Chest Pain Gastrointestinal: Reports: Abdominal Pain (Midline/lower), Decreased Appetite. Denies: Nausea, Vomiting Genitourinary: Reports: No Symptoms. Denies: Dysuria, Frequency, Burning Neurological: Reports: No Symptoms. Denies: Confusion Psychiatric: Reports: No Symptoms. Denies: Confusion - Patient Data Vitals - Most Recent: Last Vital Signs Temp 97.4 F 03/07/17 12:00 Pulse 81 03/07/17 12:00 Resp 14 03/07/17 12:00 BP 122/97 H 03/07/17 12:00 Pulse Ox 93 L 03/07/17 12:00 Weight - Most Recent: 67.8 kg I&O - Last 24 Hours: Intake & Output 03/06/17 03/07/17 03/07/17 22:59 06:59 14:59 Intake Total 3301 450 50 Output Total 175 Balance 3126 450 50 Lab Results Last 24 Hours: Laboratory Results - last 24 hr 03/06/17 03/07/17 03/07/17 Range/Units 19:04 05:52 05:52 WBC 6.37 (4.0-11.0) K/uL RBC 3.40 L (4.50-5.90) M/uL Hgb 10.4 L (13.0-17.0) g/dL Hct 31.0 L (38.0-50.0) % MCV 91.2 (80.0-98.0) fL MCH 30.6 (27.0-32.0) pg MCHC 33.5 (31.0-37.0) g/dL RDW Std Deviation 66.5 H (28.0-62.0) fl RDW Coeff of Bernarda 20 H (11.0-15.0) % Plt Count 71 L (150-400) K/uL MPV 8.90 (7.40-12.00) fL Nucleated RBC % 0.0 /100WBC Nucleated RBCs # 0 K/uL Sodium 132 L 133 L (136-146) mmol/L Potassium 3.1 L 3.2 L (3.5-5.1) mmol/L Chloride 96 L 98 (98-110) mmol/L Carbon Dioxide 21 21 (21-31) mmol/L BUN 5 L 4 L (6.0-23.0) mg/dL Creatinine 0.5 L 0.5 L (0.6-1.5) mg/dL Est Cr Clr Drug Dosing 170.47 178.92 mL/min Estimated GFR (MDRD) > 60.0 > 60.0 ml/min Glucose 70 51 L (60-110) mg/dL Calcium 7.6 L 7.3 L (8.8-10.8) mg/dL Phosphorus 2.4 < 1.0 L (2.4-4.7) mg/dL Magnesium 1.9 1.5 (1.5-2.3) mEq/L Total Bilirubin 7.9 H (0.1-1.5) mg/dL AST 739 H (5-40) IU/L ALT 165 H (8-54) IU/L Alkaline Phosphatase 364 H (40-150) Total Protein 5.1 L (6.0-8.0) g/dL Albumin 2.1 L (3.5-5.0) g/dL Globulin 3.0 (2.0-3.5) g/dL Albumin/Globulin Ratio 0.7 L (1.3-2.8) Med Orders - Current: Current Medications Bisacodyl (Dulcolax) 5 mg PO DAILY PRN PRN Reason: Constipation Heparin Sodium (Porcine) (Heparin Sodium) 5,000 units SUBCUT Q12H [facility] Last Admin: 03/07/17 03:07 Dose: 5,000 units Ciprofloxacin/Dextrose 400 mg/ (Premix) 200 mls @ 200 mls/hr IV Q12H [facility] Last Admin: 03/07/17 03:08 Dose: 200 mls/hr Sodium Phosphate 40 mmole/ (Sodium Chloride) 263.3333 mls @ 43.889 mls/hr IV ONETIME ONE Stop: 03/07/17 15:14 Last Admin: 03/07/17 10:29 Dose: 43.889 mls/hr Morphine Sulfate (Morphine) 2 mg IV Q2H PRN PRN Reason: Pain Ondansetron HCl (Zofran Odt) 4 mg PO Q4H PRN PRN Reason: nausea, able to take PO Last Admin: 03/07/17 09:20 Dose: 4 mg Ondansetron HCl (Zofran) 4 mg IVPUSH Q4H PRN PRN Reason: Nausea Last Admin: 03/06/17 09:45 Dose: 4 mg Oxycodone HCl (Oxycodone) 10 mg PO Q4H PRN PRN Reason: Pain Last Admin: 03/07/17 09:20 Dose: 10 mg Polyethylene Glycol (Miralax) 17 gm PO DAILY PRN PRN Reason: Constipation Sodium Chloride (Saline Flush) 10 ml FLUSH ASDIRECTED PRN PRN Reason: Keep Vein Open Sodium Chloride (Saline Flush) 2.5 ml FLUSH ASDIRECTED PRN PRN Reason: Keep Vein Open Sodium Phosphate (Neutra-Phos) 250 mg PO QID [facility] Last Admin: 03/07/17 12:36 Dose: 250 mg Temazepam (Restoril) 15 mg PO BEDTIME PRN PRN Reason: Sleep Discontinued Medications Sodium Chloride (Normal Saline) 1,000 mls @ 999 mls/hr IV STAT ONE Stop: 03/05/17 11:54 Last Admin: 03/05/17 11:27 Dose: 999 mls/hr Sodium Chloride (Normal Saline) 1,000 mls @ 125 mls/hr IV ASDIRECTED [facility] Last Admin: 03/06/17 11:59 Dose: 125 mls/hr Sodium Phosphate 32 mmole/ (Sodium Chloride) 260.6667 mls @ 65.167 mls/hr IV ONETIME ONE Stop: 03/06/17 17:59 Last Admin: 03/06/17 14:57 Dose: 65.167 mls/hr Potassium Chloride/Sodium Chloride (Normal Saline With 40 Meq Kcl) 1,000 mls @ 150 mls/hr IV ASDIRECTED [facility] Stop: 03/06/17 20:24 Last Admin: 03/06/17 14:28 Dose: 150 mls/hr Magnesium Sulfate 4 gm/ Premix 100 mls @ 50 mls/hr IV ONETIME ONE Stop: 03/06/17 15:41 Last Admin: 03/06/17 14:18 Dose: 50 mls/hr Magnesium Sulfate 2 gm/ Premix 50 mls @ 50 mls/hr IV ONETIME ONE Stop: 03/07/17 09:44 Last Admin: 03/07/17 09:07 Dose: 50 mls/hr Lactulose (Chronulac) 20 gm PO BID [facility] Last Admin: 03/07/17 09:08 Dose: Not Given Morphine Sulfate (Morphine) 2 mg IVPUSH Q2H PRN PRN Reason: Pain (severe 7-10) Stop: 03/06/17 14:39 Oxycodone HCl (Oxycodone) 5 mg PO Q4H PRN PRN Reason: Pain Last Admin: 03/05/17 18:36 Dose: 5 mg Potassium Chloride (Klor-Con M20) 40 meq PO ONETIME ONE Stop: 03/06/17 13:43 Last Admin: 03/06/17 14:18 Dose: 40 meq Potassium Chloride (Klor-Con M20) 40 meq PO ONETIME ONE Stop: 03/07/17 08:46 Last Admin: 03/07/17 09:07 Dose: 40 meq Sodium Phosphate (Sodium Phosphate) 40 mmole IV ONETIME ONE Stop: 03/07/17 08:46 - Exam General: Alert, Oriented, Cooperative, No Acute Distress, Other (cachectic in appearance) HEENT: Mucous Membr. Moist/[place], Scleral Icterus Neck: Supple Lungs: Clear to Auscultation, Normal Respiratory Effort Cardiovascular: Regular Rate, Regular Rhythm GI/Abdominal Exam: Normal Bowel Sounds, Soft, No Organomegaly, No Distention, No Abnormal Bruit, No Mass, Pelvis Stable, Tender (to lower mid abdomen) Extremities: Normal Inspection, Normal Range of Motion, Non-Tender, No Pedal Edema, Normal Capillary Refill Neurological: No New Focal Deficit Psy/Mental Status: Alert, Normal Affect, Normal Mood - Problem List & Annotations (1) Generalized weakness SNOMED Code(s): 08919580 Code(s): R53.1 - WEAKNESS Status: Acute Priority: High Current Visit: Yes (2) Hypophosphatemia SNOMED Code(s): 0111081 Code(s): E83.39 - OTHER DISORDERS OF PHOSPHORUS METABOLISM Status: Acute Current Visit: Yes (3) Hypomagnesemia SNOMED Code(s): 872455070 Code(s): E83.42 - HYPOMAGNESEMIA Status: Acute Current Visit: Yes (4) Hypokalemia SNOMED Code(s): 75575918 Code(s): E87.6 - HYPOKALEMIA Status: Acute Current Visit: Yes (5) Colon cancer metastasized to multiple sites SNOMED Code(s): 20209171 Code(s): C18.9 - MALIGNANT NEOPLASM OF COLON, UNSPECIFIED Status: Chronic Priority: High Current Visit: Yes (6) Abdominal pain SNOMED Code(s): 64170535 Code(s): R10.9 - UNSPECIFIED ABDOMINAL PAIN Status: Chronic Current Visit : Yes Qualifiers: Abdominal location: generalized Qualified Code(s): R10.84 - Generalized abdominal pain - Problem List Review Problem List Initiated/Reviewed/Updated: Yes - My Orders Last 24 Hours: My Active Orders 03/07/17 09:15 Sodium Phosphate 40 mmole Sodium Chloride 0.9% [Normal Saline] 250 ml IV ONETIME - Plan Plan:: 46-year-old male admitted generalized weakness and failure to thrive with past medical history of metastatic cancer of the colon involving lung and liver. 1. UTI: Improving. UC pending. Continue Ciprofloxacin BC negative. 2. Hypokalemia/hypomagnesemia/hypophosphatemia: replacing IV and PO, will repeat labs this evening. Stopped Lactulose, no further confusion and may be worsening electrolyte imbalance. 3. Gen. weakness: Improving daily. Continue to monitor. VTE prophylaxis: Heparin, SCD Dispo: 3-4 days.
--- NOTE | 2017-03-07 14:08 | CR ---
EXAM DATE: 03/05/17 PATIENT'S AGE: 46 Patient: ROBINSON GARCIA Facility: [place], [place] Site . Site : 1970 Study: XRay Chest [id number]/27/2018 11:12:55 AM Ordering Physician: Doctor Toney Final Report: HISTORY: Cough and shortness of breath. TECHNIQUE: One view chest. COMPARISON: No prior. FINDINGS: Relative elevation of the right hemidiaphragm. Left-sided subclavian Port-A- Cath with catheter terminating within the lower aspect of the SVC. There is no lung consolidation or pulmonary edema. Possible midlung zone nodule on the left superimposed over the left anterior 4th rib. Consider comparison with prior outside radiographs or radiographic followup. No pneumothorax. No moderate or large pleural effusion. IMPRESSION: 1. No acute lung infiltrate or pulmonary edema. 2. Elevation of the right hemidiaphragm. 3. Possible midlung zone nodule on the left superimposed over the left anterior 4th rib. Consider comparison with prior outside radiographs or radiographic followup. Dictated by Jose Juan Burks MD @ 03/05/2017 11:16:07 AM Dictated by: Jose Juan Burks MD @ 03/05/2017 11:16:13 (Electronic Signature) Report Signed by Proxy. BRETT
[2017-03-07 17:39] LABS: CHLORIDE,CL 98 mmol/L (98-110); SODIUM,NA 133 mmol/L (136-146)
[2017-03-07] MEDS: Divalproex Sodium Delayed-Release 500 MG Tab.CR PO SCH (20:30)
[2017-03-08] MEDS: Heparin Sodium 5,000 Units/ML Vial SUBCUT SCH (02:51)
[2017-03-08] MEDS: Ondansetron 4 MG/2 ML SDV IVPUSH PRN ×3 (03:08→12:17)
[2017-03-08] MEDS: Ciprofloxacin in D5W 400 MG in Premix Bag 1 BAG IV SCH ×4 (03:08→16:00)
[2017-03-08] MEDS: oxyCODONE 5 MG Tab PO PRN ×4 (03:09→17:59)
[2017-03-08] MEDS: Phosphorus #1 250 MG Tab PO SCH ×3 (05:21→17:59)
[2017-03-08 05:56] LABS: CHLORIDE,CL 96 mmol/L (98-110); SODIUM,NA 134 mmol/L (136-146)
[2017-03-08] MEDS ORDERED: Calcium Carbonate 500 MG Tab.Chew PO ONE (08:10)
[2017-03-08] MEDS ORDERED: Magnesium Sulfate/Water 4 GM in Premix Bag 1 BAG IV ONE (08:10)
[2017-03-08] MEDS ORDERED: Sodium Phosphate 15 mMole/5 ML SDV IV ONE ×2 (08:11→20:00)
[2017-03-08] MEDS ORDERED: Potassium Chloride 20 MEQ Tab.ER PO ONE ×2 (08:11→15:54)
--- NOTE | 2017-03-08 08:17 | PCM.PN ---
Addendum entered and electronically signed by Heaven Adam NP 03/08/17 13:48 : Blood sugar noted to be 40s today, given d50 amp due to agitation and not wanting to eat or drink. Then started D51/2 NS with 40 KCL 50/hr. will monitor. Original Note: - General Info Date of Service: 03/08/17 Admission Dx/Problem (Free Text): Admission Diagnosis/Problem Admission Diagnosis/Problem Weakness Subjective Update: Continues to feel better today, nauseated intermittently and starting to tolerate more fluids. No chest pain or SOB. Abdominal pain is intermittent, but chronic. Continues to gain strength. Functional Status: Reports: Pain Controlled, Tolerating Diet, Ambulating, Urinating - Review of Systems HEENT: Denies: No Symptoms, Sore Throat, Rhinitis Pulmonary: Reports: No Symptoms. Denies: Shortness of Breath Cardiovascular: Reports: No Symptoms. Denies: Chest Pain Gastrointestinal: Reports: Abdominal Pain, Decreased Appetite, Nausea, Vomiting. Denies: Diarrhea Genitourinary: Reports: No Symptoms Skin: Reports: No Symptoms Neurological: Reports: No Symptoms Psychiatric: Reports: No Symptoms - Patient Data Vitals - Most Recent: Last Vital Signs Temp 98.7 F 03/08/17 04:00 Pulse 82 03/08/17 04:00 Resp 19 03/08/17 04:00 BP 126/80 03/08/17 04:00 Pulse Ox 96 03/08/17 04:00 Weight - Most Recent: 67.7 kg I&O - Last 24 Hours: Intake & Output 03/07/17 03/08/17 03/08/17 22:59 06:59 14:59 Intake Total 1050 1200 Output Total 600 Balance 1050 600 Lab Results Last 24 Hours: Laboratory Results - last 24 hr 03/07/17 03/08/17 03/08/17 Range/Units 17:07 04:32 04:32 WBC 6.33 (4.0-11.0) K/uL RBC 3.27 L (4.50-5.90) M/uL Hgb 10.1 L (13.0-17.0) g/dL Hct 29.9 L (38.0-50.0) % MCV 91.4 (80.0-98.0) fL MCH 30.9 (27.0-32.0) pg MCHC 33.8 (31.0-37.0) g/dL RDW Std Deviation 66.0 H (28.0-62.0) fl RDW Coeff of Bernarda 20 H (11.0-15.0) % Plt Count 45 L (150-400) K/uL MPV 8.90 (7.40-12.00) fL Nucleated RBC % 0.0 /100WBC Nucleated RBCs # 0 K/uL Sodium 133 L 134 L (136-146) mmol/L Potassium 3.7 3.6 (3.5-5.1) mmol/L Chloride 98 96 L (98-110) mmol/L Carbon Dioxide 22 24 (21-31) mmol/L BUN 4 L 4 L (6.0-23.0) mg/dL Creatinine 0.4 L 0.4 L (0.6-1.5) mg/dL Est Cr Clr Drug Dosing 223.65 223.32 mL/min Estimated GFR (MDRD) > 60.0 > 60.0 ml/min Glucose 65 41 L (60-110) mg/dL Calcium 7.2 L 7.1 L (8.8-10.8) mg/dL Phosphorus 2.8 1.1 L (2.4-4.7) mg/dL Magnesium 1.5 1.5 (1.5-2.3) mEq/L Total Bilirubin 8.1 H (0.1-1.5) mg/dL AST 660 H (5-40) IU/L ALT 183 H (8-54) IU/L Alkaline Phosphatase 326 H (40-150) Total Protein 4.6 L (6.0-8.0) g/dL Albumin 2.1 L (3.5-5.0) g/dL Globulin 2.5 (2.0-3.5) g/dL Albumin/Globulin Ratio 0.8 L (1.3-2.8) Rory Results Last 24 Hours: Microbiology 03/05/17 14:45 Urine Culture - Final Urine, Clean Catch MIXED JOEL <1000 CFU/ML Med Orders - Current: Current Medications Bisacodyl (Dulcolax) 5 mg PO DAILY PRN PRN Reason: Constipation Divalproex Sodium (Depakote) 500 mg PO BEDTIME [facility] Last Admin: 03/07/17 20:30 Dose: 500 mg Ciprofloxacin/Dextrose 400 mg/ (Premix) 200 mls @ 200 mls/hr IV Q12H [facility] Last Admin: 03/08/17 03:08 Dose: 200 mls/hr Magnesium Sulfate 4 gm/ Premix 100 mls @ 50 mls/hr IV ONETIME ONE Stop: 03/08/17 10:09 Sodium Phosphate 40 mmole/ (Sodium Chloride) 263.3333 mls @ 43.889 mls/hr IV ONETIME ONE Stop: 03/08/17 14:29 Morphine Sulfate (Morphine) 2 mg IV Q2H PRN PRN Reason: Pain Ondansetron HCl (Zofran Odt) 4 mg PO Q4H PRN PRN Reason: nausea, able to take PO Last Admin: 03/07/17 18:21 Dose: 4 mg Ondansetron HCl (Zofran) 4 mg IVPUSH Q4H PRN PRN Reason: Nausea Last Admin: 03/08/17 03:08 Dose: 4 mg Oxycodone HCl (Oxycodone) 10 mg PO Q4H PRN PRN Reason: Pain Last Admin: 03/08/17 03:09 Dose: 10 mg Polyethylene Glycol (Miralax) 17 gm PO DAILY PRN PRN Reason: Constipation Sodium Chloride (Saline Flush) 10 ml FLUSH ASDIRECTED PRN PRN Reason: Keep Vein Open Sodium Chloride (Saline Flush) 2.5 ml FLUSH ASDIRECTED PRN PRN Reason: Keep Vein Open Sodium Phosphate (Neutra-Phos) 250 mg PO QID [facility] Last Admin: 03/08/17 05:21 Dose: 250 mg Temazepam (Restoril) 15 mg PO BEDTIME PRN PRN Reason: Sleep Discontinued Medications Calcium Carbonate/Glycine (Tums) 1,000 mg PO ONETIME ONE Stop: 03/07/17 13:26 Last Admin: 03/07/17 14:01 Dose: Not Given Calcium Carbonate/Glycine (Tums) 1,000 mg PO ONETIME ONE Stop: 03/08/17 08:11 Heparin Sodium (Porcine) (Heparin Sodium) 5,000 units SUBCUT Q12H [facility] Last Admin: 03/08/17 02:51 Dose: Not Given Sodium Chloride (Normal Saline) 1,000 mls @ 999 mls/hr IV STAT ONE Stop: 03/05/17 11:54 Last Admin: 03/05/17 11:27 Dose: 999 mls/hr Sodium Chloride (Normal Saline) 1,000 mls @ 125 mls/hr IV ASDIRECTED [facility] Last Admin: 03/06/17 11:59 Dose: 125 mls/hr Sodium Phosphate 32 mmole/ (Sodium Chloride) 260.6667 mls @ 65.167 mls/hr IV ONETIME ONE Stop: 03/06/17 17:59 Last Admin: 03/06/17 14:57 Dose: 65.167 mls/hr Potassium Chloride/Sodium Chloride (Normal Saline With 40 Meq Kcl) 1,000 mls @ 150 mls/hr IV ASDIRECTED [facility] Stop: 03/06/17 20:24 Last Admin: 03/06/17 14:28 Dose: 150 mls/hr Magnesium Sulfate 4 gm/ Premix 100 mls @ 50 mls/hr IV ONETIME ONE Stop: 03/06/17 15:41 Last Admin: 03/06/17 14:18 Dose: 50 mls/hr Magnesium Sulfate 2 gm/ Premix 50 mls @ 50 mls/hr IV ONETIME ONE Stop: 03/07/17 09:44 Last Admin: 03/07/17 09:07 Dose: 50 mls/hr Sodium Phosphate 40 mmole/ (Sodium Chloride) 263.3333 mls @ 43.889 mls/hr IV ONETIME ONE Stop: 03/07/17 15:14 Last Admin: 03/07/17 10:29 Dose: 43.889 mls/hr Lactulose (Chronulac) 20 gm PO BID [facility] Last Admin: 03/07/17 09:08 Dose: Not Given Morphine Sulfate (Morphine) 2 mg IVPUSH Q2H PRN PRN Reason: Pain (severe 7-10) Stop: 03/06/17 14:39 Oxycodone HCl (Oxycodone) 5 mg PO Q4H PRN PRN Reason: Pain Last Admin: 03/05/17 18:36 Dose: 5 mg Potassium Chloride (Klor-Con M20) 40 meq PO ONETIME ONE Stop: 03/06/17 13:43 Last Admin: 03/06/17 14:18 Dose: 40 meq Potassium Chloride (Klor-Con M20) 40 meq PO ONETIME ONE Stop: 03/07/17 08:46 Last Admin: 03/07/17 09:07 Dose: 40 meq Potassium Chloride (Klor-Con M20) 20 meq PO ONETIME ONE Stop: 03/08/17 08:12 Sodium Phosphate (Sodium Phosphate) 40 mmole IV ONETIME ONE Stop: 03/07/17 08:46 Sodium Phosphate (Sodium Phosphate) 40 mmole IV ONETIME ONE Stop: 03/08/17 08:12 - Exam General: Alert, Oriented, Cooperative, Other (laying in bed, appears cachectic.) Neck: Supple Lungs: Clear to Auscultation, Normal Respiratory Effort Cardiovascular: Regular Rate, Regular Rhythm GI/Abdominal Exam: Normal Bowel Sounds, Soft, Distended, Tender (to LLQ and midline). No: Guarding, Rigid, Rebound Extremities: Normal Inspection, Normal Range of Motion, Non-Tender, No Pedal Edema, Normal Capillary Refill Neurological: No New Focal Deficit Psy/Mental Status: Alert, Normal Affect, Normal Mood - Problem List & Annotations (1) Generalized weakness SNOMED Code(s): 54556891 Code(s): R53.1 - WEAKNESS Status: Acute Priority: High Current Visit: Yes (2) Hypophosphatemia SNOMED Code(s): 1488936 Code(s): E83.39 - OTHER DISORDERS OF PHOSPHORUS METABOLISM Status: Acute Current Visit: Yes (3) Hypomagnesemia SNOMED Code(s): 443085051 Code(s): E83.42 - HYPOMAGNESEMIA Status: Acute Current Visit: Yes (4) Hypokalemia SNOMED Code(s): 57554402 Code(s): E87.6 - HYPOKALEMIA Status: Acute Current Visit: Yes (5) Colon cancer metastasized to multiple sites SNOMED Code(s): 96938537 Code(s): C18.9 - MALIGNANT NEOPLASM OF COLON, UNSPECIFIED Status: Chronic Priority: High Current Visit: Yes (6) Abdominal pain SNOMED Code(s): 57826321 Code(s): R10.9 - UNSPECIFIED ABDOMINAL PAIN Status: Chronic Current Visit : Yes Qualifiers: Abdominal location: generalized Qualified Code(s): R10.84 - Generalized abdominal pain - Problem List Review Problem List Initiated/Reviewed/Updated: Yes - My Orders Last 24 Hours: My Active Orders 03/07/17 13:26 Communication Order [RC] STAT 03/07/17 21:00 Divalproex Sodium [Depakote] 500 mg PO BEDTIME 03/08/17 08:10 Magnesium Sulfate/Water [Magnesium Sulfate 4 GM in Water 100 ML] 4 gm Premix Bag 1 bag IV ONETIME 03/08/17 08:30 Sodium Phosphate 40 mmole Sodium Chloride 0.9% [Normal Saline] 250 ml IV ONETIME - Plan Plan:: 46-year-old male admitted generalized weakness and failure to thrive with past medical history of metastatic cancer of the colon involving lung and liver. 1. UTI: Improving. UC mixed joel <1,000. Continue Ciprofloxacin for now. BC negative. 2. Hypokalemia/hypomagnesemia/hypophosphatemia: replacing IV and PO, will repeat labs this evening. 3. Gen. weakness: Improving daily. Continue to monitor. 4. Thrombocytopenia: Hold Heparin, Platelets 45 today, no bleeding noted. VTE prophylaxis: SCD Dispo: 3-4 days.
[2017-03-08] MEDS ORDERED: 50% Dextrose in Water 50 ML Syringe IVPUSH ONE (08:28)
[2017-03-08] MEDS ORDERED: Sodium Phosphate 40 MMOLE in Sodium Chloride 0.9% 250 ML IV ONE (08:30)
[2017-03-08] MEDS: D5 1/2 NS w/ 40 mEq/L KCl 1,000 ML IV SCH ×2 (12:32)
[2017-03-08 15:51] LABS: CHLORIDE,CL 96 mmol/L (98-110); SODIUM,NA 134 mmol/L (136-146)
[2017-03-08] MEDS ORDERED: Calcium Gluconate 10% 1 GM/10 ML SDV IV ONE (15:56)
[2017-03-08] MEDS ORDERED: SODIUM PHOSPHATE IV ONE ×2 (16:15→20:00)
[2017-03-08] MEDS ORDERED: SODIUM CHLORIDE IV ONE ×2 (16:15→20:00)
[2017-03-08] MEDS: Ondansetron 4 MG Tab.DIS PO PRN (18:10)
[2017-03-08] MEDS: Divalproex Sodium Delayed-Release 500 MG Tab.CR PO SCH (20:13)
[2017-03-09] MEDS: oxyCODONE 5 MG Tab PO PRN ×5 (00:19→21:17)
[2017-03-09] MEDS: Phosphorus #1 250 MG Tab PO SCH ×5 (00:19→23:59)
[2017-03-09] MEDS: Ciprofloxacin in D5W 400 MG in Premix Bag 1 BAG IV SCH ×4 (02:08→15:51)
[2017-03-09 04:44] LABS: CHLORIDE,CL 96 mmol/L (98-110); SODIUM,NA 135 mmol/L (136-146)
[2017-03-09] MEDS: Ondansetron 4 MG/2 ML SDV IVPUSH PRN (05:46)
[2017-03-09] MEDS ORDERED: Magnesium Sulfate/Water 4 GM in Premix Bag 1 BAG IV ONE (07:31)
[2017-03-09] MEDS ORDERED: Calcium Gluconate 10% 1 GM/10 ML SDV IV ONE (07:31)
[2017-03-09] MEDS ORDERED: Sodium Phosphate 15 mMole/5 ML SDV IV ONE ×2 (07:32→20:00)
[2017-03-09] MEDS ORDERED: Potassium Chloride 20 MEQ Tab.ER PO ONE (07:33)
[2017-03-09] MEDS ORDERED: Sodium Phosphate 40 MMOLE in Sodium Chloride 0.9% 250 ML IV ONE (08:00)
--- NOTE | 2017-03-09 11:28 | PCM.PN ---
- General Info Date of Service: 03/09/17 Admission Dx/Problem (Free Text): Admission Diagnosis/Problem Admission Diagnosis/Problem Weakness Subjective Update: Puma is just waking up and isn't feeling well on first rounds around 0815. Feeling nauseated and having abdominal pain. NO chest pain or SOB. reports he is eating more at night time, mornings are never good for him [id number]- Patient sister in law here, Helen. Spoke with her and Puma together and asked his goals of treatment. He currently is wanting curative treatment and would like to get stronger and go home. I expressed out concerns of a poor prognosis due to his poor nutritional status. There has been little improvement in status since admission, if not some continue deconditioning. Puma was offered Hospice for end of life care and he currently is not interested. I did ask Puma about [facility] , which he did show some interest in, but this was him hoping to gain strength to then transition back to home. Helen asked to speak with me separately. She is very concerned about Puma and is wanting to know if this is more end of life than they thought. I told her, that yes he is likely close to end of life and there isn't much more we can offer acutely for his care and are recommending he transition to more palliative /Hospice care. She reports she and Puma's sister, Janine have a meeting today with Dr Godwin via Telemedicine to discuss options. I encouraged her Puma should be present for this meeting since, currently he appears to be cognitively aware and able to make decisions for himself. Functional Status: Reports: Urinating. Denies: Tolerating Diet, Ambulating - Review of Systems HEENT: Reports: No Symptoms Pulmonary: Reports: No Symptoms. Denies: Shortness of Breath Cardiovascular: Reports: No Symptoms. Denies: Chest Pain, Palpitations, Edema Gastrointestinal: Reports: Abdominal Pain (LLQ and mid abdomen), Nausea (comes in waves), Vomiting Genitourinary: Reports: No Symptoms. Denies: Dysuria, Frequency, Burning Skin: Reports: Jaundice Neurological: Reports: No Symptoms. Denies: Confusion Psychiatric: Reports: No Symptoms. Denies: Confusion - Patient Data Vitals - Most Recent: Last Vital Signs Temp 98.1 F 03/09/17 08:00 Pulse 85 03/09/17 08:00 Resp 16 03/09/17 08:00 BP 152/93 H 03/09/17 08:00 Pulse Ox 94 L 03/09/17 08:00 Weight - Most Recent: 67.5 kg I&O - Last 24 Hours: Intake & Output 03/08/17 03/09/17 03/09/17 22:59 06:59 14:59 Intake Total 881 2400 Output Total 1800 500 Balance -919 1900 Lab Results Last 24 Hours: Laboratory Results - last 24 hr 03/08/17 03/09/17 03/09/17 Range/Units 15:13 03:55 03:55 WBC 4.18 (4.0-11.0) K/uL RBC 3.12 L (4.50-5.90) M/uL Hgb 9.6 L (13.0-17.0) g/dL Hct 28.7 L (38.0-50.0) % MCV 92.0 (80.0-98.0) fL MCH 30.8 (27.0-32.0) pg MCHC 33.4 (31.0-37.0) g/dL RDW Std Deviation 66.2 H (28.0-62.0) fl RDW Coeff of Bernarda 20 H (11.0-15.0) % Plt Count 23 L (150-400) K/uL MPV 9.20 (7.40-12.00) fL Nucleated RBC % 0.0 /100WBC Nucleated RBCs # 0 K/uL Sodium 134 L 135 L (136-146) mmol/L Potassium 3.5 3.8 (3.5-5.1) mmol/L Chloride 96 L 96 L (98-110) mmol/L Carbon Dioxide 21 23 (21-31) mmol/L BUN 3 L 3 L (6.0-23.0) mg/dL Creatinine 0.4 L 0.5 L (0.6-1.5) mg/dL Est Cr Clr Drug Dosing 223.32 178.65 mL/min Estimated GFR (MDRD) > 60.0 > 60.0 ml/min Glucose 57 L 59 L (60-110) mg/dL Calcium 6.8 L 7.1 L (8.8-10.8) mg/dL Phosphorus 3.0 2.2 L (2.4-4.7) mg/dL Magnesium 1.8 1.5 (1.5-2.3) mEq/L Total Bilirubin 8.4 H (0.1-1.5) mg/dL AST 589 H (5-40) IU/L ALT 190 H (8-54) IU/L Alkaline Phosphatase 310 H (40-150) Total Protein 4.6 L (6.0-8.0) g/dL Albumin 2.0 L (3.5-5.0) g/dL Globulin 2.6 (2.0-3.5) g/dL Albumin/Globulin Ratio 0.8 L (1.3-2.8) Med Orders - Current: Current Medications Bisacodyl (Dulcolax) 5 mg PO DAILY PRN PRN Reason: Constipation Divalproex Sodium (Depakote) 500 mg PO BEDTIME [facility] Last Admin: 03/08/17 20:13 Dose: 500 mg Ciprofloxacin/Dextrose 400 mg/ (Premix) 200 mls @ 200 mls/hr IV Q12H [facility] Last Admin: 03/09/17 02:08 Dose: 200 mls/hr Potassium Chloride/Dextrose/Sod Cl (D5 1/2 Ns W/ 40 Meq/L Kcl) 1,000 mls @ 50 mls/hr IV ASDIRECTED [facility] Last Admin: 03/08/17 12:32 Dose: 50 mls/hr Sodium Phosphate 40 mmole/ (Sodium Chloride) 263.3333 mls @ 43.889 mls/hr IV ONETIME ONE Stop: 03/09/17 13:59 Last Admin: 03/09/17 09:59 Dose: 43.889 mls/hr Morphine Sulfate (Morphine) 2 mg IV Q2H PRN PRN Reason: Pain Ondansetron HCl (Zofran Odt) 4 mg PO Q4H [facility] Oxycodone HCl (Oxycodone) 10 mg PO Q4H PRN PRN Reason: Pain Last Admin: 03/09/17 10:15 Dose: 10 mg Polyethylene Glycol (Miralax) 17 gm PO DAILY PRN PRN Reason: Constipation Sodium Chloride (Saline Flush) 10 ml FLUSH ASDIRECTED PRN PRN Reason: Keep Vein Open Sodium Chloride (Saline Flush) 2.5 ml FLUSH ASDIRECTED PRN PRN Reason: Keep Vein Open Sodium Phosphate (Neutra-Phos) 250 mg PO QID [facility] Last Admin: 03/09/17 05:38 Dose: 250 mg Temazepam (Restoril) 15 mg PO BEDTIME PRN PRN Reason: Sleep Discontinued Medications Calcium Carbonate/Glycine (Tums) 1,000 mg PO ONETIME ONE Stop: 03/07/17 13:26 Last Admin: 03/07/17 14:01 Dose: Not Given Calcium Carbonate/Glycine (Tums) 1,000 mg PO ONETIME ONE Stop: 03/08/17 08:11 Last Admin: 03/08/17 08:44 Dose: 1,000 mg Calcium Gluconate (Calcium Gluconate) 2 gm IV ONETIME ONE Stop: 03/08/17 15:57 Last Admin: 03/08/17 16:22 Dose: 2 gm Calcium Gluconate (Calcium Gluconate) 1 gm IV ONETIME ONE Stop: 03/09/17 07:32 Last Admin: 03/09/17 09:42 Dose: 1 gm Dextrose/Water (Dextrose 50% In Water) 50 ml IVPUSH ONETIME ONE Stop: 03/08/17 08:29 Last Admin: 03/08/17 08:34 Dose: 50 ml Heparin Sodium (Porcine) (Heparin Sodium) 5,000 units SUBCUT Q12H [facility] Last Admin: 03/08/17 02:51 Dose: Not Given Sodium Chloride (Normal Saline) 1,000 mls @ 999 mls/hr IV STAT ONE Stop: 03/05/17 11:54 Last Admin: 03/05/17 11:27 Dose: 999 mls/hr Sodium Chloride (Normal Saline) 1,000 [facility]ls @ [facility] Admin: 03/06/17 11:59 Dose: 125 mls/hr Sodium Phosphate 32 mmole/ (Sodium Chloride) 260.6667 mls @ 65.167 mls/hr IV ONETIME ONE Stop: 03/06/17 17:59 Last Admin: 03/06/17 14:57 Dose: 65.167 mls/hr Potassium Chloride/Sodium Chloride (Normal Saline With 40 Meq Kcl) 1,000 mls @ 150 mls/hr IV ASDIRECTED [facility] Stop: 03/06/17 20:24 Last Admin: 03/06/17 14:28 Dose: 150 mls/hr Magnesium Sulfate 4 gm/ Premix 100 mls @ 50 mls/hr IV ONETIME ONE Stop: 03/06/17 15:41 Last Admin: 03/06/17 14:18 Dose: 50 mls/hr Magnesium Sulfate 2 gm/ Premix 50 mls @ 50 mls/hr IV ONETIME ONE Stop: 03/07/17 09:44 Last Admin: 03/07/17 09:07 Dose: 50 mls/hr Sodium Phosphate 40 mmole/ (Sodium Chloride) 263.3333 mls @ 43.889 mls/hr IV ONETIME ONE Stop: 03/07/17 15:14 Last Admin: 03/07/17 10:29 Dose: 43.889 mls/hr Magnesium Sulfate 4 gm/ Premix 100 mls @ 50 mls/hr IV ONETIME ONE Stop: 03/08/17 10:09 Last Admin: 03/08/17 08:37 Dose: 50 mls/hr Sodium Phosphate 40 mmole/ (Sodium Chloride) 263.3333 mls @ 43.889 mls/hr IV ONETIME ONE Stop: 03/08/17 14:29 Last Admin: 03/08/17 08:42 Dose: 43.889 mls/hr Sodium Phosphate 25 mmole/ (Sodium Chloride) 258.3333 mls @ 43.056 mls/hr IV ONETIME ONE Stop: 03/09/17 01:59 Last Admin: 03/08/17 20:13 Dose: 43.056 mls/hr Magnesium Sulfate 4 gm/ Premix 100 mls @ 50 mls/hr IV ONETIME ONE Stop: 03/09/17 09:30 Last Admin: 03/09/17 09:48 Dose: 50 mls/hr Lactulose (Chronulac) 20 gm PO BID [facility] Last Admin: 03/07/17 09:08 Dose: Not Given Morphine Sulfate (Morphine) 2 mg IVPUSH Q2H PRN PRN Reason: Pain (severe 7-10) Stop: 03/06/17 14:39 Ondansetron HCl (Zofran Odt) 4 mg PO Q4H PRN PRN Reason: nausea, able to take PO Last Admin: 03/08/17 18:10 Dose: 4 mg Ondansetron HCl (Zofran) 4 mg IVPUSH Q4H PRN PRN Reason: Nausea Last Admin: 03/09/17 05:46 Dose: 4 mg Oxycodone HCl (Oxycodone) 5 mg PO Q4H PRN PRN Reason: Pain Last Admin: 03/05/17 18:36 Dose: 5 mg Potassium Chloride (Klor-Con M20) 40 meq PO ONETIME ONE Stop: 03/06/17 13:43 Last Admin: 03/06/17 14:18 Dose: 40 meq Potassium Chloride (Klor-Con M20) 40 meq PO ONETIME ONE Stop: 03/07/17 08:46 Last Admin: 03/07/17 09:07 Dose: 40 meq Potassium Chloride (Klor-Con M20) 20 meq PO ONETIME ONE Stop: 03/08/17 08:12 Last Admin: 03/08/17 08:44 Dose: 20 meq Potassium Chloride (Klor-Con M20) 40 meq PO ONETIME ONE Stop: 03/08/17 15:55 Last Admin: 03/08/17 16:22 Dose: 40 meq Potassium Chloride (Klor-Con M20) 20 meq PO ONETIME ONE Stop: 03/09/17 07:34 Last Admin: 03/09/17 09:40 Dose: 20 meq Sodium Phosphate (Sodium Phosphate) 40 mmole IV ONETIME ONE Stop: 03/07/17 08:46 Sodium Phosphate (Sodium Phosphate) 40 mmole IV ONETIME ONE Stop: 03/08/17 08:12 Sodium Phosphate (Sodium Phosphate) 25 mmole IV ONETIME ONE Stop: 03/08/17 20:01 Sodium Phosphate (Sodium Phosphate) 40 mmole IV ONETIME ONE Stop: 03/09/17 07:33 - Exam General: Alert, Oriented, Cooperative, No Acute Distress HEENT: Scleral Icterus Lungs: Clear to Auscultation, Normal Respiratory Effort Cardiovascular: Regular Rate, Regular Rhythm GI/Abdominal Exam: Normal Bowel Sounds, Distended (ascites noted), Tender (LLQ and midline) Extremities: Normal Range of Motion, Pedal Edema (+1 pitting edema) Skin: Other (jaundiced) Neurological: No New Focal Deficit Psy/Mental Status: Alert, Normal Affect, Normal Mood - Problem List & Annotations (1) Generalized weakness SNOMED Code(s): 79984843 Code(s): R53.1 - WEAKNESS Status: Acute Priority: High Current Visit: Yes (2) Hypophosphatemia SNOMED Code(s): 6657984 Code(s): E83.39 - OTHER DISORDERS OF PHOSPHORUS METABOLISM Status: Acute Current Visit: Yes (3) Hypomagnesemia SNOMED Code(s): 065861121 Code(s): E83.42 - HYPOMAGNESEMIA Status: Acute Current Visit: Yes (4) Hypokalemia SNOMED Code(s): 13701030 Code(s): E87.6 - HYPOKALEMIA Status: Acute Current Visit: Yes (5) Colon cancer metastasized to multiple sites SNOMED Code(s): 83907944 Code(s): C18.9 - MALIGNANT NEOPLASM OF COLON, UNSPECIFIED Status: Chronic Priority: High Current Visit: Yes (6) Abdominal pain SNOMED Code(s): 72792114 Code(s): R10.9 - UNSPECIFIED ABDOMINAL PAIN Status: Chronic Current Visit : Yes Qualifiers: Abdominal location: generalized Qualified Code(s): R10.84 - Generalized abdominal pain - Problem List Review Problem List Initiated/Reviewed/Updated: Yes - My Orders Last 24 Hours: My Active Orders 03/09/17 08:00 Sodium Phosphate 40 mmole Sodium Chloride 0.9% [Normal Saline] 250 ml IV ONETIME 03/09/17 11:45 Ondansetron [Zofran ODT] 4 mg PO Q4H - Plan Plan:: 46-year-old male admitted generalized weakness and failure to thrive with past medical history of metastatic cancer of the colon involving lung and liver. 1. UTI: Improving. UC mixed joel <1,000. Continue Ciprofloxacin for now. BC negative. 2. Hypokalemia/hypomagnesemia/hypophosphatemia: replacing IV and PO. Likely not to improve without continued replacement, since nutrition status is very poor. 3. Gen. weakness: Improving daily. Continue to monitor. 4. Thrombocytopenia: Hold Heparin, Platelets 23,000 today, no bleeding noted. 5. Metastatic colon cancer: Very cachectic in appearance. Continues to show no improvement. Will speak with Dr Godwin today, who has telemedicine conference with Puma and family today. Offered Hospice care, but patient currently is declining this. May need to speak with Dr Godwin regarding further treatment options vs ceasing treatment due to deconditioned state. VTE prophylaxis: SCD Dispo: 3-4 days.
[2017-03-09] MEDS: Ondansetron 4 MG Tab.DIS PO SCH ×4 (11:59→23:59)
--- NOTE | 2017-03-09 16:05 | PCM.SN ---
- Free Text/Narrative Note: Spoke with Dr. Godwin regarding patient admission and current condition. Reported we offered Hospice at this point due to the poor prognosis and condition at this time. Dr Godwin agrees with that plan due to his overall poor prognosis from the beginning. No meeting was planned today per report of Dr. Godwin. I then spoke with Carlos and sister in law colon at his bedside. He is alert and competent at this time. I discussed with him the poor prognosis of his disease and again offered Hospice. He became very agitated and angry about "other people trying to have secret meetings and making decisions behind my back". "I want to continue with treatment, everyone needs to stop telling me I am going to ." He has agreed he will be ready for discharge tomorrow. He is wanting to return home and not to a nursing facility.
[2017-03-09 17:56] LABS: CHLORIDE,CL 95 mmol/L (98-110); SODIUM,NA 133 mmol/L (136-146)
[2017-03-09] MEDS: D5 1/2 NS w/ 40 mEq/L KCl 1,000 ML IV SCH ×2 (17:56)
[2017-03-09] MEDS ORDERED: Calcium Gluconate 10% 1 GM/10 ML SDV IVPUSH ONE (18:08)
[2017-03-09] MEDS ORDERED: Potassium Phosphates 25 MMOLE in Sodium Chloride 0.9% 500 ML IV ONE (19:00)
[2017-03-09] MEDS ORDERED: SODIUM CHLORIDE IV ONE (20:00)
[2017-03-09] MEDS ORDERED: Sodium Phosphate 30 MMOLE in Sodium Chloride 0.9% 500 ML IV ONE (20:00)
[2017-03-09] MEDS ORDERED: SODIUM PHOSPHATE IV ONE (20:00)
[2017-03-09] MEDS ORDERED: Sodium Phosphate 30 MMOLE in Sodium Chloride 0.9% 250 ML IV ONE (20:15)
[2017-03-09] MEDS: Divalproex Sodium Delayed-Release 500 MG Tab.CR PO SCH (21:17)
[2017-03-10] MEDS: Ciprofloxacin in D5W 400 MG in Premix Bag 1 BAG IV SCH ×2 (02:20)
[2017-03-10] MEDS: oxyCODONE 5 MG Tab PO PRN ×3 (02:26→12:41)
[2017-03-10] MEDS: Ondansetron 4 MG Tab.DIS PO SCH ×3 (03:59→12:04)
[2017-03-10 05:38] LABS: CHLORIDE,CL 93 mmol/L (98-110); SODIUM,NA 133 mmol/L (136-146)
[2017-03-10] MEDS: Phosphorus #1 250 MG Tab PO SCH ×3 (05:53→12:38)
[2017-03-10] MEDS ORDERED: 50% Dextrose in Water 50 ML Syringe IVPUSH STA (06:57)
[2017-03-10] MEDS ORDERED: D5 1/2 NS w/ 40 mEq/L KCl 1,000 ML IV SCH (07:28)
[2017-03-10] MEDS ORDERED: Calcium Gluconate 10% 1 GM/10 ML SDV IV ONE (07:30)
[2017-03-10] MEDS ORDERED: Magnesium Sulfate/Water 4 GM in Premix Bag 1 BAG IV ONE (07:30)
[2017-03-10 08:55] VITALS: BP 133/91
--- NOTE | 2017-03-10 12:21 | PCM.PN ---
- General Info Date of Service: 03/10/17 Admission Dx/Problem (Free Text): Admission Diagnosis/Problem Admission Diagnosis/Problem Weakness Subjective Update: Doing ok this morning, having some nausea. Pain to abdomen. Functional Status: Reports: Pain Controlled, Urinating. Denies: Tolerating Diet , Ambulating - Review of Systems HEENT: Reports: No Symptoms Pulmonary: Reports: No Symptoms Cardiovascular: Reports: No Symptoms. Denies: Chest Pain Gastrointestinal: Reports: Abdominal Pain, Decreased Appetite, Nausea, Vomiting Musculoskeletal: Reports: No Symptoms Neurological: Reports: No Symptoms. Denies: Confusion Psychiatric: Reports: No Symptoms. Denies: Confusion - Patient Data Vitals - Most Recent: Last Vital Signs Temp 98.3 F 03/10/17 08:00 Pulse 84 03/10/17 08:00 Resp 12 03/10/17 08:00 BP 133/91 H 03/10/17 08:00 Pulse Ox 96 03/10/17 08:00 Weight - Most Recent: 71.4 kg I&O - Last 24 Hours: Intake & Output 03/09/17 03/10/17 03/10/17 22:59 06:59 14:59 Intake Total 1200 600 Output Total 1250 550 Balance -50 50 Lab Results Last 24 Hours: Laboratory Results - last 24 hr 03/09/17 03/10/17 03/10/17 Range/Units 17:09 05:00 05:00 WBC 4.73 (4.0-11.0) K/uL RBC 3.25 L (4.50-5.90) M/uL Hgb 10.0 L (13.0-17.0) g/dL Hct 29.5 L (38.0-50.0) % MCV 90.8 (80.0-98.0) fL MCH 30.8 (27.0-32.0) pg MCHC 33.9 (31.0-37.0) g/dL RDW Std Deviation 64.9 H (28.0-62.0) fl RDW Coeff of Bernarda 20 H (11.0-15.0) % Plt Count 12 L (150-400) K/uL Neut % (Auto) 83.1 H (48.0-80.0) % Lymph % (Auto) 14.0 L (16.0-40.0) % Kay % (Auto) 2.3 (0.0-15.0) % Eos % (Auto) 0.6 (0.0-7.0) % Baso % (Auto) 0.0 (0.0-1.5) % Neut # (Auto) 3.9 (1.4-5.7) K/uL Lymph # (Auto) 0.7 (0.6-2.4) K/uL Kay # (Auto) 0.1 (0.0-0.8) K/uL Eos # (Auto) 0.0 (0.0-0.7) K/uL Baso # (Auto) 0.0 (0.0-0.1) K/uL Nucleated RBC % 0.0 /100WBC Nucleated RBCs # 0 K/uL Sodium 133 L 133 L (136-146) mmol/L Potassium 4.3 3.9 (3.5-5.1) mmol/L Chloride 95 L 93 L (98-110) mmol/L Carbon Dioxide 20 L 24 (21-31) mmol/L BUN 3 L 2 L (6.0-23.0) mg/dL Creatinine 0.4 L 0.5 L (0.6-1.5) mg/dL Est Cr Clr Drug Dosing 222.66 185.94 mL/min Estimated GFR (MDRD) > 60.0 > 60.0 ml/min Glucose 58 L 34 L* (60-110) mg/dL POC Glucose (60-110) mg/dL Calcium 7.4 L 7.4 L (8.8-10.8) mg/dL Phosphorus 2.4 2.2 L (2.4-4.7) mg/dL Magnesium 1.7 1.5 (1.5-2.3) mEq/L Total Bilirubin 9.7 H (0.1-1.5) mg/dL AST 616 H (5-40) IU/L ALT 210 H (8-54) IU/L Alkaline Phosphatase 316 H (40-150) Total Protein 4.9 L (6.0-8.0) g/dL Albumin 2.2 L (3.5-5.0) g/dL Globulin 2.7 (2.0-3.5) g/dL Albumin/Globulin Ratio 0.8 L (1.3-2.8) 03/10/17 03/10/17 Range/Units 06:53 09:05 WBC (4.0-11.0) K/uL RBC (4.50-5.90) M/uL Hgb (13.0-17.0) g/dL Hct (38.0-50.0) % MCV (80.0-98.0) fL MCH (27.0-32.0) pg MCHC (31.0-37.0) g/dL RDW Std Deviation (28.0-62.0) fl RDW Coeff of Bernarda (11.0-15.0) % Plt Count (150-400) K/uL Neut % (Auto) (48.0-80.0) % Lymph % (Auto) (16.0-40.0) % Kay % (Auto) (0.0-15.0) % Eos % (Auto) (0.0-7.0) % Baso % (Auto) (0.0-1.5) % Neut # (Auto) (1.4-5.7) K/uL Lymph # (Auto) (0.6-2.4) K/uL Kay # (Auto) (0.0-0.8) K/uL Eos # (Auto) (0.0-0.7) K/uL Baso # (Auto) (0.0-0.1) K/uL Nucleated RBC % /100WBC Nucleated RBCs # K/uL Sodium (136-146) mmol/L Potassium (3.5-5.1) mmol/L Chloride (98-110) mmol/L Carbon Dioxide (21-31) mmol/L BUN (6.0-23.0) mg/dL Creatinine (0.6-1.5) mg/dL Est Cr Clr Drug Dosing mL/min Estimated GFR (MDRD) ml/min Glucose (60-110) mg/dL POC Glucose 28 L 61 (60-110) mg/dL Calcium (8.8-10.8) mg/dL Phosphorus (2.4-4.7) mg/dL Magnesium (1.5-2.3) mEq/L Total Bilirubin (0.1-1.5) mg/dL AST (5-40) IU/L ALT (8-54) IU/L Alkaline Phosphatase (40-150) Total Protein (6.0-8.0) g/dL Albumin (3.5-5.0) g/dL Globulin (2.0-3.5) g/dL Albumin/Globulin Ratio (1.3-2.8) Med Orders - Current: Current Medications Bisacodyl (Dulcolax) 5 mg PO DAILY PRN PRN Reason: Constipation Divalproex Sodium (Depakote) 500 mg PO BEDTIME [facility] Last Admin: 03/09/17 21:17 Dose: 500 mg Ciprofloxacin/Dextrose 400 mg/ (Premix) 200 mls @ 200 mls/hr IV Q12H [facility] Last Admin: 03/10/17 02:20 Dose: 200 mls/hr Potassium Chloride/Dextrose/Sod Cl (D5 1/2 Ns W/ 40 Meq/L Kcl) 1,000 mls @ 100 mls/hr IV ASDIRECTED [facility] Morphine Sulfate (Morphine) 2 mg IV Q2H PRN PRN Reason: Pain Ondansetron HCl (Zofran Odt) 4 mg PO Q4H [facility] Last Admin: 03/10/17 12:04 Dose: 4 mg Oxycodone HCl (Oxycodone) 10 mg PO Q4H PRN PRN Reason: Pain Last Admin: 03/10/17 02:26 Dose: 10 mg Polyethylene Glycol (Miralax) 17 gm PO DAILY PRN PRN Reason: Constipation Sodium Chloride (Saline Flush) 10 ml FLUSH ASDIRECTED PRN PRN Reason: Keep Vein Open Sodium Chloride (Saline Flush) 2.5 ml FLUSH ASDIRECTED PRN PRN Reason: Keep Vein Open Sodium Phosphate (Neutra-Phos) 250 mg PO QID [facility] Last Admin: 03/10/17 05:53 Dose: 250 mg Temazepam (Restoril) 15 mg PO BEDTIME PRN PRN Reason: Sleep Discontinued Medications Calcium Carbonate/Glycine (Tums) 1,000 mg PO ONETIME ONE Stop: 03/07/17 13:26 Last Admin: 03/07/17 14:01 Dose: Not Given Calcium Carbonate/Glycine (Tums) 1,000 mg PO ONETIME ONE Stop: 03/08/17 08:11 Last Admin: 03/08/17 08:44 Dose: 1,000 mg Calcium Gluconate (Calcium Gluconate) 2 gm IV ONETIME ONE Stop: 03/08/17 15:57 Last Admin: 03/08/17 16:22 Dose: 2 gm Calcium Gluconate (Calcium Gluconate) 1 gm IV ONETIME ONE Stop: 03/09/17 07:32 Last Admin: 03/09/17 09:42 Dose: 1 gm Calcium Gluconate (Calcium Gluconate) 1 gm IVPUSH ONETIME ONE Stop: 03/09/17 18:09 Last Admin: 03/09/17 18:35 Dose: 1 gm Calcium Gluconate (Calcium Gluconate) 1 gm IV ONETIME ONE Stop: 03/10/17 07:31 Last Admin: 03/10/17 08:55 Dose: 1 gm Dextrose/Water (Dextrose 50% In Water) 50 ml IVPUSH ONETIME ONE Stop: 03/08/17 08:29 Last Admin: 03/08/17 08:34 Dose: 50 ml Dextrose/Water (Dextrose 50% In Water) 50 ml IVPUSH STAT STA Stop: 03/10/17 06:58 Last Admin: 03/10/17 07:06 Dose: 50 ml Heparin Sodium (Porcine) (Heparin Sodium) 5,000 units SUBCUT Q12H [facility] Last Admin: 03/08/17 02:51 Dose: Not Given Sodium Chloride (Normal Saline) 1,000 mls @ 999 mls/hr IV STAT ONE Stop: 03/05/17 11:54 Last Admin: 03/05/17 11:27 Dose: 999 mls/hr Sodium Chloride (Normal Saline) 1,000 mls @ 125 mls/hr IV ASDIRECTED [facility] Last Admin: 03/06/17 11:59 Dose: 125 mls/hr Sodium Phosphate 32 mmole/ (Sodium Chloride) 260.6667 mls @ 65.167 mls/hr IV ONETIME ONE Stop: 03/06/17 17:59 Last Admin: 03/06/17 14:57 Dose: 65.167 mls/hr Potassium Chloride/Sodium Chloride (Normal Saline With 40 Meq Kcl) 1,000 mls @ 150 mls/hr IV ASDIRECTED [facility] Stop: 03/06/17 20:24 Last Admin: 03/06/17 14:28 Dose: 150 mls/hr Magnesium Sulfate 4 gm/ Premix 100 mls @ 50 mls/hr IV ONETIME ONE Stop: 03/06/17 15:41 Last Admin: 03/06/17 14:18 Dose: 50 mls/hr Magnesium Sulfate 2 gm/ Premix 50 mls @ 50 mls/hr IV ONETIME ONE Stop: 03/07/17 09:44 Last Admin: 03/07/17 09:07 Dose: 50 mls/hr Sodium Phosphate 40 mmole/ (Sodium Chloride) 263.3333 mls @ 43.889 mls/hr IV ONETIME ONE Stop: 03/07/17 15:14 Last Admin: 03/07/17 10:29 Dose: 43.889 mls/hr Magnesium Sulfate 4 gm/ Premix 100 mls @ 50 mls/hr IV ONETIME ONE Stop: 03/08/17 10:09 Last Admin: 03/08/17 08:37 Dose: 50 mls/hr Sodium Phosphate 40 mmole/ (Sodium Chloride) 263.3333 mls @ 43.889 mls/hr IV ONETIME ONE Stop: 03/08/17 14:29 Last Admin: 03/08/17 08:42 Dose: 43.889 mls/hr Potassium Chloride/Dextrose/Sod Cl (D5 1/2 Ns W/ 40 Meq/L Kcl) 1,000 mls @ 50 mls/hr IV ASDIRECTED [facility] Last Admin: 03/09/17 17:56 Dose: 50 mls/hr Sodium Phosphate 25 mmole/ (Sodium Chloride) 258.3333 mls @ 43.056 mls/hr IV ONETIME ONE Stop: 03/09/17 01:59 Last Admin: 03/08/17 20:13 Dose: 43.056 mls/hr Magnesium Sulfate 4 gm/ Premix 100 mls @ 50 mls/hr IV ONETIME ONE Stop: 03/09/17 09:30 Last Admin: 03/09/17 09:48 Dose: 50 mls/hr Sodium Phosphate 40 mmole/ (Sodium Chloride) 263.3333 mls @ 43.889 mls/hr IV ONETIME ONE Stop: 03/09/17 13:59 Last Admin: 03/09/17 09:59 Dose: 43.889 mls/hr Sodium Phosphate 25 mmole/ (Sodium Chloride) 508.3333 mls @ 63.542 mls/hr IV ONETIME ONE Stop: 03/10/17 03:59 Sodium Phosphate 30 mmole/ (Sodium Chloride) 510 mls @ 63.542 mls/hr IV ONETIME ONE Stop: 03/10/17 04:01 Last Admin: 03/10/17 00:52 Dose: Not Given Sodium Phosphate 30 mmole/ (Sodium Chloride) 260 mls @ 32.394 mls/hr IV ONETIME ONE Stop: 03/10/17 04:16 Last Admin: 03/09/17 21:00 Dose: 32.394 mls/hr Magnesium Sulfate 4 gm/ Premix 100 mls @ 50 mls/hr IV ONETIME ONE Stop: 03/10/17 09:29 Last Admin: 03/10/17 08:56 Dose: 50 mls/hr Lactulose (Chronulac) 20 gm PO BID [facility] Last Admin: 03/07/17 09:08 Dose: Not Given Morphine Sulfate (Morphine) 2 mg IVPUSH Q2H PRN PRN Reason: Pain (severe 7-10) Stop: 03/06/17 14:39 Ondansetron HCl (Zofran Odt) 4 mg PO Q4H PRN PRN Reason: nausea, able to take PO Last Admin: 03/08/17 18:10 Dose: 4 mg Ondansetron HCl (Zofran) 4 mg IVPUSH Q4H PRN PRN Reason: Nausea Last Admin: 03/09/17 05:46 Dose: 4 mg Oxycodone HCl (Oxycodone) 5 mg PO Q4H PRN PRN Reason: Pain Last Admin: 03/05/17 18:36 Dose: 5 mg Potassium Chloride (Klor-Con M20) 40 meq PO ONETIME ONE Stop: 03/06/17 13:43 Last Admin: 03/06/17 14:18 Dose: 40 meq Potassium Chloride (Klor-Con M20) 40 meq PO ONETIME ONE Stop: 03/07/17 08:46 Last Admin: 03/07/17 09:07 Dose: 40 meq Potassium Chloride (Klor-Con M20) 20 meq PO ONETIME ONE Stop: 03/08/17 08:12 Last Admin: 03/08/17 08:44 Dose: 20 meq Potassium Chloride (Klor-Con M20) 40 meq PO ONETIME ONE Stop: 03/08/17 15:55 Last Admin: 03/08/17 16:22 Dose: 40 meq Potassium Chloride (Klor-Con M20) 20 meq PO ONETIME ONE Stop: 03/09/17 07:34 Last Admin: 03/09/17 09:40 Dose: 20 meq Sodium Phosphate (Sodium Phosphate) 40 mmole IV ONETIME ONE Stop: 03/07/17 08:46 Sodium Phosphate (Sodium Phosphate) 40 mmole IV ONETIME ONE Stop: 03/08/17 08:12 Sodium Phosphate (Sodium Phosphate) 25 mmole IV ONETIME ONE Stop: 03/08/17 20:01 Sodium Phosphate (Sodium Phosphate) 40 mmole IV ONETIME ONE Stop: 03/09/17 07:33 - Exam General: Alert, Oriented, Cooperative, No Acute Distress, Other (extremely cachectic in appearnce with jaundice) HEENT: Mucous Membr. Moist/[place], Scleral Icterus Lungs: Clear to Auscultation, Normal Respiratory Effort Cardiovascular: Regular Rate, Regular Rhythm GI/Abdominal Exam: Normal Bowel Sounds, Distended (ascites noted.), Tender ( lower abdomen) Extremities: Pedal Edema (+1 pitting edema BLE.) Neurological: No New Focal Deficit Psy/Mental Status: Alert, Normal Affect, Normal Mood - Problem List & Annotations (1) Generalized weakness SNOMED Code(s): 30011730 Code(s): R53.1 - WEAKNESS Status: Acute Priority: High Current Visit: Yes (2) Hypophosphatemia SNOMED Code(s): 2346268 Code(s): E83.39 - OTHER DISORDERS OF PHOSPHORUS METABOLISM Status: Acute Current Visit: Yes (3) Hypomagnesemia SNOMED Code(s): 746964046 Code(s): E83.42 - HYPOMAGNESEMIA Status: Acute Current Visit: Yes (4) Hypokalemia SNOMED Code(s): 68853433 Code(s): E87.6 - HYPOKALEMIA Status: Acute Current Visit: Yes (5) Colon cancer metastasized to multiple sites SNOMED Code(s): 05649591 Code(s): C18.9 - MALIGNANT NEOPLASM OF COLON, UNSPECIFIED Status: Chronic Priority: High Current Visit: Yes (6) Abdominal pain SNOMED Code(s): 51936035 Code(s): R10.9 - UNSPECIFIED ABDOMINAL PAIN Status: Chronic Current Visit : Yes Qualifiers: Abdominal location: generalized Qualified Code(s): R10.84 - Generalized abdominal pain - Problem List Review Problem List Initiated/Reviewed/Updated: Yes - My Orders Last 24 Hours: My Active Orders 03/09/17 11:45 Ondansetron [Zofran ODT] 4 mg PO Q4H 03/10/17 07:28 D5 1/2 NS w/ 40 mEq/L KCl 1,000 ml IV ASDIRECTED - Plan Plan:: 46-year-old male admitted generalized weakness and failure to thrive with past medical history of metastatic cancer of the colon involving lung and liver. 1. UTI: Improving. UC mixed joel <1,000. Continue Ciprofloxacin for now. BC negative. 2. Hypokalemia/hypomagnesemia/hypophosphatemia: replacing IV and PO. Likely not to improve without continued replacement, since nutrition status is very poor. 3. Gen. weakness: Improving daily. Continue to monitor. 4. Thrombocytopenia: Platelets 12,000 today, no bleeding noted. 5. Hypoglycemia: secondary to poor nutrition and liver failure. D5 1/2 NS continues for now. 6. Metastatic colon cancer: Very cachectic in appearance. No improvement today, labwork continues to worsen and is likely in liver failure. BS this morning, 28. This morning I spoke with Carlos alone regarding his grave prognosis. That with his current condition further chemotherapy would not help him, it would likely only worsen his condition. We also spoke about transitioning to end of life care goals versus treatment due to his poor prognosis. He initially wanted full treatment until I was very honest with him about his prognosis and the likelyhood he would not be able to survive much longer in this state. He agreed to speak with Hospice and wanted time to think. He asked me not to talk with family yet. On second rounds with Dr Mendiola, Carlos decided he would like to go home with Hospice and his goals would be to provide comfort at the end of life not seeking curative treatment. He again did not want me to contact his sister Janine, but that he would call her himself. I assured him, if she had questions I am available to speak with her if her wanted. He verbalized understanding. Code status changed to DNR/DNI/Comfort measures with patient in agreement. I spoke with Doris, Hospice nurse, who also contacted Oncology. Jillian Chen, Oncology PROMOTIONAL DEMONSTRATOR to visit with Carlos around noon. Oncology providers agree with Hospice referral due to patients extremely poor prognosis. Dispo: Possibly later today if arrangements can be made with family and Hospice.
--- NOTE | 2017-03-10 12:54 | PCM.DCSUM1 ---
Discharge Summary - Hospital Course Brief History: 46-year-old male presenting to emergency department with chief complaint of generalized weakness and poor oral intake 1-2 weeks with past medical history of advanced metastatic cancer of the colon with liver and lung involvement currently undergoing chemotherapy. As per ex- and son primary reason for coming to emergency department was his progressive generalized weakness. Son states that this morning he was unable to get up and out of bed. He also has had decreased appetite and has not eaten much in the past few days. When he does eat he has difficulty holding it down. As above patient does have advanced metastatic cancer of the colon with involvement of the liver and lung. He is currently receiving chemotherapy. He is currently full code and would like everything done possible. Patient denied any fever, chills, vomiting, diarrhea, cough, sore throat, or other signs of systemic infection. Emergency department CBC was unremarkable. ABG showed a pH of 7.51, PCO2 26, PO2 88, HCO3 21. Sodium was low at 131 as well as bicarbonate low at 18. Liver function test were elevated with total bilirubin 9.5, AST 53 4, ALT 98, alkaline phosphatase 647. Ammonia was elevated at 151 and patient as well as family reported mild confusion. Influenza was negative, chest x-ray was unremarkable. He was given 1 L of normal saline in the emergency department. Patient was admitted for generalized weakness and failure to thrive. - Discharge Data Discharge Date: 03/10/17 Discharge Disposition: DC/Tfer to Hospice - Home 51 Condition: Poor - Discharge Diagnosis/Problem(s) (1) Generalized weakness SNOMED Code(s): 62419383 ICD Code: R53.1 - WEAKNESS Status: Acute Priority: High Current Visit: Yes (2) Hypophosphatemia SNOMED Code(s): 5379925 ICD Code: E83.39 - OTHER DISORDERS OF PHOSPHORUS METABOLISM Status: Acute Current Visit: Yes (3) Hypomagnesemia SNOMED Code(s): 338689455 ICD Code: E83.42 - HYPOMAGNESEMIA Status: Acute Current Visit: Yes (4) Hypokalemia SNOMED Code(s): 22587020 ICD Code: E87.6 - HYPOKALEMIA Status: Acute Current Visit: Yes (5) Colon cancer metastasized to multiple sites SNOMED Code(s): 24412842 ICD Code: C18.9 - MALIGNANT NEOPLASM OF COLON, UNSPECIFIED Status: Chronic Priority: High Current Visit: Yes (6) Abdominal pain SNOMED Code(s): 75664498 ICD Code: R10.9 - UNSPECIFIED ABDOMINAL PAIN Status: Chronic Current Visit: Yes Qualifiers: Abdominal location: generalized Qualified Code(s): R10.84 - Generalized abdominal pain (7) Hospice care Status: Acute Current Visit: Yes - Patient Summary/Data Consults: Consultations 03/05/17 14:37 Consult to [employer] [CONS] Routine - Patient Instructions Diet: Usual Diet as Tolerated Activity: As Tolerated, No Strenuous Activities Driving: Do Not Drive Showering/Bathing: May Shower Other/Special Instructions: Hospice to admit at home. [facility] to provide Hospital Bed. - Discharge Plan Home Medications: Home Meds Divalproex Sodium [Depakote] 500 mg PO BEDTIME 11/26/16 [History] Ondansetron [Zofran ODT] 4 mg PO Q4H tab.dis 03/10/17 [Rx] Polyethylene Glycol 3350 [MiraLAX] 17 gm PO DAILY PRN packet 03/10/17 [Rx] oxyCODONE 10 mg PO Q4H PRN #0 tablet 03/10/17 [Rx] Referrals: PCP,None [Primary Care Provider] - Nadya Babin MD [Physician] - - Discharge Summary/Plan Comment DC Time >30 min.: No Discharge Summary/Plan Comment: Discharge Diagnoses: Hospice patient Comfort measures Metastatic colon cancer-end stage Liver failure Carlos will be discharged today with Hospice care at home. He will return home with sister Janine. Hospice consulted and will admit today at home. Will arrange Hospital bed. COntinue Oxycodone and Zofran. Jillian Chen [employer] in oncology visited with patient today. She did offered Prednisone 5 mg daily for liver pain due to inflammation and abdominal pain. He currently denied wanting this and would like to stay with only Oxycodone and Zofran ODT for now. Hospice updated. Family at bedside. Patient requesting discharge home now. - General Info Date of Service: 03/10/17 Admission Dx/Problem (Free Text: Admission Diagnosis/Problem Admission Diagnosis/Problem Weakness Subjective Update: Doing ok this morning, having some nausea. Pain to abdomen. - Review of Systems Pulmonary: Reports: No Symptoms. Denies: Shortness of Breath Cardiovascular: Reports: No Symptoms. Denies: Chest Pain Gastrointestinal: Reports: Abdominal Pain, Decreased Appetite, Nausea, Vomiting Genitourinary: Reports: No Symptoms. Denies: Dysuria, Frequency, Burning Neurological: Reports: No Symptoms. Denies: Confusion Psychiatric: Reports: No Symptoms. Denies: Confusion - Patient Data Vitals - Most Recent: Last Vital Signs Temp 98.3 F 03/10/17 08:00 Pulse 84 03/10/17 08:00 Resp 12 03/10/17 08:00 BP 133/91 H 03/10/17 08:00 Pulse Ox 96 03/10/17 08:00 Weight - Most Recent: 71.4 kg I&O - Last 24 hours: Intake & Output 03/09/17 03/10/17 03/10/17 22:59 06:59 14:59 Intake Total 1200 600 Output Total 1250 550 Balance -50 50 Lab Results - Last 24 hrs: Laboratory Results - last 24 hr 03/09/17 03/10/17 03/10/17 Range/Units 17:09 05:00 05:00 WBC 4.73 (4.0-11.0) K/uL RBC 3.25 L (4.50-5.90) M/uL Hgb 10.0 L (13.0-17.0) g/dL Hct 29.5 L (38.0-50.0) % MCV 90.8 (80.0-98.0) fL MCH 30.8 (27.0-32.0) pg MCHC 33.9 (31.0-37.0) g/dL RDW Std Deviation 64.9 H (28.0-62.0) fl RDW Coeff of Bernard[place] 20 H (11.0-15.0) % Plt Count 12 L (150-400) K/uL Neut % (Auto) 83.1 H (48.0-80.0) % Lymph % (Auto) 14.0 L (16.0-40.0) % [place] % (Auto) 2.3 (0.0-15.0) % Eos % (Auto) 0.6 (0.0-7.0) % Baso % (Auto) 0.0 (0.0-1.5) % Neut # (Auto) 3.9 (1.4-5.7) K/uL Lymph # (Auto) 0.7 (0.6-2.4) K/uL [place] # (Auto) 0.1 (0.0-0.8) K/uL Eos # (Auto) 0.0 (0.0-0.7) K/uL Baso # (Auto) 0.0 (0.0-0.1) K/uL Nucleated RBC % 0.0 /100WBC Nucleated RBCs # 0 K/uL Sodium 133 L 133 L (136-146) mmol/L Potassium 4.3 3.9 (3.5-5.1) mmol/L Chloride 95 L 93 L (98-110) mmol/L Carbon Dioxide 20 L 24 (21-31) mmol/L BUN 3 L 2 L (6.0-23.0) mg/dL Creatinine 0.4 L 0.5 L (0.6-1.5) mg/dL Est Cr Clr Drug Dosing 222.66 185.94 mL/min Estimated GFR (MDRD) > 60.0 > 60.0 ml/min Glucose 58 L 34 L* (60-110) mg/dL POC Glucose (60-110) mg/dL Calcium 7.4 L 7.4 L (8.8-10.8) mg/dL Phosphorus 2.4 2.2 L (2.4-4.7) mg/dL Magnesium 1.7 1.5 (1.5-2.3) mEq/L Total Bilirubin 9.7 H (0.1-1.5) mg/dL AST 616 H (5-40) IU/L ALT 210 H (8-54) IU/L Alkaline Phosphatase 316 H (40-150) Total Protein 4.9 L (6.0-8.0) g/dL Albumin 2.2 L (3.5-5.0) g/dL Globulin 2.7 (2.0-3.5) g/dL Albumin/Globulin Ratio 0.8 L (1.3-2.8) 03/10/17 03/10/17 Range/Units 06:53 09:05 WBC (4.0-11.0) K/uL RBC (4.50-5.90) M/uL Hgb (13.0-17.0) g/dL Hct (38.0-50.0) % MCV (80.0-98.0) fL MCH (27.0-32.0) pg MCHC (31.0-37.0) g/dL RDW Std Deviation (28.0-62.0) fl RDW Coeff of Bernarda (11.0-15.0) % Plt Count (150-400) K/uL Neut % (Auto) (48.0-80.0) % Lymph % (Auto) (16.0-40.0) % [place] % (Auto) (0.0-15.0) % Eos % (Auto) (0.0-7.0) % Baso % (Auto) (0.0-1.5) % Neut # (Auto) (1.4-5.7) K/uL Lymph # (Auto) (0.6-2.4) K/uL [place] # (Auto) (0.0-0.8) K/uL Eos # (Auto) (0.0-0.7) K/uL Baso # (Auto) (0.0-0.1) K/uL Nucleated RBC % /100WBC Nucleated RBCs # K/uL Sodium (136-146) mmol/L Potassium (3.5-5.1) mmol/L Chloride (98-110) mmol/L Carbon Dioxide (21-31) mmol/L BUN (6.0-23.0) mg/dL Creatinine (0.6-1.5) mg/dL Est Cr Clr Drug Dosing mL/min Estimated GFR (MDRD) ml/min Glucose (60-110) mg/dL POC Glucose 28 L 61 (60-110) mg/dL Calcium (8.8-10.8) mg/dL Phosphorus (2.4-4.7) mg/dL Magnesium (1.5-2.3) mEq/L Total Bilirubin (0.1-1.5) mg/dL AST (5-40) IU/L ALT (8-54) IU/L Alkaline Phosphatase (40-150) Total Protein (6.0-8.0) g/dL Albumin (3.5-5.0) g/dL Globulin (2.0-3.5) g/dL Albumin/Globulin Ratio (1.3-2.8) Med Orders - Current: Current Medications Bisacodyl (Dulcolax) 5 mg PO DAILY PRN PRN Reason: Constipation Divalproex Sodium (Depakote) 500 mg PO BEDTIME [facility] Last Admin: 03/09/17 21:17 Dose: 500 mg Ciprofloxacin/Dextrose 400 mg/ (Premix) 200 mls @ 200 mls/hr IV Q12H [facility] Last Admin: 03/10/17 02:20 Dose: 200 mls/hr Potassium Chloride/Dextrose/Sod Cl (D5 1/2 Ns W/ 40 Meq/L Kcl) 1,000 mls @ 100 mls/hr IV ASDIRECTED [facility] Morphine Sulfate (Morphine) 2 mg IV Q2H PRN PRN Reason: Pain Ondansetron HCl (Zofran Odt) 4 mg PO Q4H [facility] Last Admin: 03/10/17 12:04 Dose: 4 mg Oxycodone HCl (Oxycodone) 10 mg PO Q4H PRN PRN Reason: Pain Last Admin: 03/10/17 12:41 Dose: 10 mg Polyethylene Glycol (Miralax) 17 gm PO DAILY PRN PRN Reason: Constipation Sodium Chloride (Saline Flush) 10 ml FLUSH ASDIRECTED PRN PRN Reason: Keep Vein Open Sodium Chloride (Saline Flush) 2.5 ml FLUSH ASDIRECTED PRN PRN Reason: Keep Vein Open Sodium Phosphate (Neutra-Phos) 250 mg PO QID [facility] Last Admin: 03/10/17 12:38 Dose: Not Given Temazepam (Restoril) 15 mg PO BEDTIME PRN PRN Reason: Sleep Discontinued Medications Calcium Carbonate/Glycine (Tums) 1,000 mg PO ONETIME ONE Stop: 03/07/17 13:26 Last Admin: 03/07/17 14:01 Dose: Not Given Calcium Carbonate/Glycine (Tums) 1,000 mg PO ONETIME ONE Stop: 03/08/17 08:11 Last Admin: 03/08/17 08:44 Dose: 1,000 mg Calcium Gluconate (Calcium Gluconate) 2 gm IV ONETIME ONE Stop: 03/08/17 15:57 Last Admin: 03/08/17 16:22 Dose: 2 gm Calcium Gluconate (Calcium Gluconate) 1 gm IV ONETIME ONE Stop: 03/09/17 07:32 Last Admin: 03/09/17 09:42 Dose: 1 gm Calcium Gluconate (Calcium Gluconate) 1 gm IVPUSH ONETIME ONE Stop: 03/09/17 18:09 Last Admin: 03/09/17 18:35 Dose: 1 gm Calcium Gluconate (Calcium Gluconate) 1 gm IV ONETIME ONE Stop: 03/10/17 07:31 Last Admin: 03/10/17 08:55 Dose: 1 gm Dextrose/Water (Dextrose 50% In Water) 50 ml IVPUSH ONETIME ONE Stop: 03/08/17 08:29 Last Admin: 03/08/17 08:34 Dose: 50 ml Dextrose/Water (Dextrose 50% In Water) 50 ml IVPUSH STAT STA Stop: 03/10/17 06:58 Last Admin: 03/10/17 07:06 Dose: 50 ml Heparin Sodium (Porcine) (Heparin Sodium) 5,000 units SUBCUT Q12H [facility] Last Admin: 03/08/17 02:51 Dose: Not Given Sodium Chloride (Normal Saline) 1,000 mls @ 999 mls/hr IV STAT ONE Stop: 03/05/17 11:54 Last Admin: 03/05/17 11:27 Dose: 999 mls/hr Sodium Chloride (Normal Saline) 1,000 mls @ 125 mls/hr IV ASDIRECTED [facility] Last Admin: 03/06/17 11:59 Dose: 125 mls/hr Sodium Phosphate 32 mmole/ (Sodium Chloride) 260.6667 mls @ 65.167 mls/hr IV ONETIME ONE Stop: 03/06/17 17:59 Last Admin: 03/06/17 14:57 Dose: 65.167 mls/hr Potassium Chloride/Sodium Chloride (Normal Saline With 40 Meq Kcl) 1,000 mls @ 150 mls/hr IV ASDIRECTED [facility] Stop: 03/06/17 20:24 Last Admin: 03/06/17 14:28 Dose: 150 mls/hr Magnesium Sulfate 4 gm/ Premix 100 mls @ 50 mls/hr IV ONETIME ONE Stop: 03/06/17 15:41 Last Admin: 03/06/17 14:18 Dose: 50 mls/hr Magnesium Sulfate 2 gm/ Premix 50 mls @ 50 mls/hr IV ONETIME ONE Stop: 03/07/17 09:44 Last Admin: 03/07/17 09:07 Dose: 50 mls/hr Sodium Phosphate 40 mmole/ (Sodium Chloride) 263.3333 mls @ 43.889 mls/hr IV ONETIME ONE Stop: 03/07/17 15:14 Last Admin: 03/07/17 10:29 Dose: 43.889 mls/hr Magnesium Sulfate 4 gm/ Premix 100 mls @ 50 mls/hr IV ONETIME ONE Stop: 03/08/17 10:09 Last Admin: 03/08/17 08:37 Dose: 50 mls/hr Sodium Phosphate 40 mmole/ (Sodium Chloride) 263.3333 mls @ 43.889 mls/hr IV ONETIME ONE Stop: 03/08/17 14:29 Last Admin: 03/08/17 08:42 Dose: 43.889 mls/hr Potassium Chloride/Dextrose/Sod Cl (D5 1/2 Ns W/ 40 Meq/L Kcl) 1,000 mls @ 50 mls/hr IV ASDIRECTED [facility] Last Admin: 03/09/17 17:56 Dose: 50 mls/hr Sodium Phosphate 25 mmole/ (Sodium Chloride) 258.3333 mls @ 43.056 mls/hr IV ONETIME ONE Stop: 03/09/17 01:59 Last Admin: 03/08/17 20:13 Dose: 43.056 mls/hr Magnesium Sulfate 4 gm/ Premix 100 mls @ 50 mls/hr IV ONETIME ONE Stop: 03/09/17 09:30 Last Admin: 03/09/17 09:48 Dose: 50 mls/hr Sodium Phosphate 40 mmole/ (Sodium Chloride) 263.3333 mls @ 43.889 mls/hr IV ONETIME ONE Stop: 03/09/17 13:59 Last Admin: 03/09/17 09:59 Dose: 43.889 mls/hr Sodium Phosphate 25 mmole/ (Sodium Chloride) 508.3333 mls @ 63.542 mls/hr IV ONETIME ONE Stop: 03/10/17 03:59 Sodium Phosphate 30 mmole/ (Sodium Chloride) 510 mls @ 63.542 mls/hr IV ONETIME ONE Stop: 03/10/17 04:01 Last Admin: 03/10/17 00:52 Dose: Not Given Sodium Phosphate 30 mmole/ (Sodium Chloride) 260 mls @ 32.394 mls/hr IV ONETIME ONE Stop: 03/10/17 04:16 Last Admin: 03/09/17 21:00 Dose: 32.394 mls/hr Magnesium Sulfate 4 gm/ Premix 100 mls @ 50 mls/hr IV ONETIME ONE Stop: 03/10/17 09:29 Last Admin: 03/10/17 08:56 Dose: 50 mls/hr Lactulose (Chronulac) 20 gm PO BID [facility] Last Admin: 03/07/17 09:08 Dose: Not Given Morphine Sulfate (Morphine) 2 mg IVPUSH Q2H PRN PRN Reason: Pain (severe 7-10) Stop: 03/06/17 14:39 Ondansetron HCl (Zofran Odt) 4 mg PO Q4H PRN PRN Reason: nausea, able to take PO Last Admin: 03/08/17 18:10 Dose: 4 mg Ondansetron HCl (Zofran) 4 mg IVPUSH Q4H PRN PRN Reason: Nausea Last Admin: 03/09/17 05:46 Dose: 4 mg Oxycodone HCl (Oxycodone) 5 mg PO Q4H PRN PRN Reason: Pain Last Admin: 03/05/17 18:36 Dose: 5 mg Potassium Chloride (Klor-Con M20) 40 meq PO ONETIME ONE Stop: 03/06/17 13:43 Last Admin: 03/06/17 14:18 Dose: 40 meq Potassium Chloride (Klor-Con M20) 40 meq PO ONETIME ONE Stop: 03/07/17 08:46 Last Admin: 03/07/17 09:07 Dose: 40 meq Potassium Chloride (Klor-Con M20) 20 meq PO ONETIME ONE Stop: 03/08/17 08:12 Last Admin: 03/08/17 08:44 Dose: 20 meq Potassium Chloride (Klor-Con M20) 40 meq PO ONETIME ONE Stop: 03/08/17 15:55 Last Admin: 03/08/17 16:22 Dose: 40 meq Potassium Chloride (Klor-Con M20) 20 meq PO ONETIME ONE Stop: 03/09/17 07:34 Last Admin: 03/09/17 09:40 Dose: 20 meq Sodium Phosphate (Sodium Phosphate) 40 mmole IV ONETIME ONE Stop: 03/07/17 08:46 Sodium Phosphate (Sodium Phosphate) 40 mmole IV ONETIME ONE Stop: 03/08/17 08:12 Sodium Phosphate (Sodium Phosphate) 25 mmole IV ONETIME ONE Stop: 03/08/17 20:01 Sodium Phosphate (Sodium Phosphate) 40 mmole IV ONETIME ONE Stop: 03/09/17 07:33 - Exam General: Reports: Alert, Oriented, Cooperative HEENT: Reports: Scleral Icterus Lungs: Reports: Clear to Auscultation, Normal Respiratory Effort Cardiovascular: Reports: Regular Rate, Regular Rhythm GI/Abdominal Exam: Distended, Tender, Hepatomegaly Extremities: Normal Inspection, Normal Range of Motion, Non-Tender, No Pedal Edema, Normal Capillary Refill Skin: Reports: Other (moderate jaundice.) Psy/Mental Status: Reports: Alert, Normal Affect, Normal Mood *Q Meaningful Use (DIS) - VTE *Q VTE Criteria *Q: - Stroke *Q Stroke Criteria *Q: - AMI *Q AMI Criteria *Q:
== END 2017-03-10 13:45 | disposition home or self-care (01) | DRG 948 ==
LOC: MW.ED 10:48 → MW.MS 12:19 → UNDODISIN 03-10 13:45 → MW.MS 03-10 15:32
PROVIDERS: ADMIT Family Medicine; ATTEND Family Medicine
DX: R53.1 Weakness (principal); C18.9 Malignant neoplasm of colon, unspecified; C78.7 Secondary malignant neoplasm of liver and intrahepatic bile duct; N39.0 Urinary tract infection, site not specified; E83.39 Other disorders of phosphorus metabolism; F17.200 Nicotine dependence, unspecified, uncomplicated; E83.42 Hypomagnesemia; E87.6 Hypokalemia; R10.84 Generalized abdominal pain; D69.6 Thrombocytopenia, unspecified; E16.1 Other hypoglycemia; I10 Essential (primary) hypertension; F41.9 Anxiety disorder, unspecified; Z51.5 Encounter for palliative care; Z88.8 Allergy status to other drugs, medicaments and biological substances; Z79.899 Other long term (current) drug therapy
CPT/HCPCS: 36415; 36600; 71045; 82140; 82803; 85025; 85610; 87040 ×2; 87804 ×2; 93005; 96360; 99285; J7040; 80048; 80053; 81001; 82150; 82962; 83735; 84100; 84484; 85027; 87086; 96361; 99283; A9270-GY; J0610; J0744; J1644; J2405; J3475; J3480; J7050; J7060